=== PATIENT | male | born 1960 | race Caucasian/White ===

== ENCOUNTER 2024-02-03 03:09 | Inpatient (IN) | payer OTHER, SELFPAY ==
[2024-02-03] VITALS (78 sets, daily range): BP systolic 133–215; BP diastolic 63–116; BMI 31.6; BMI 31.2
[2024-02-03 00:44] LABS: Glucose - Point of Care 173 mg/dl (70-99)
--- NOTE | 2024-02-03 00:49 | ED.CVA ---
History of Present Illness
General
Chief Complaint: CVA/TIA Symptoms
Source: patient and spouse
Time Seen by Provider: 02/03/24 00:47
Onset of Stroke Symptoms
Onset of symptoms known: Yes
Date of onset of symptoms: 02/03/24
History of Present Illness
History of Present Illness:
This patient is a 63-year-old male with no prior medical history who does not see a doctor on a regular basis and has not seen a doctor in many years. He does elect to take a daily baby aspirin, otherwise he does not take any medications except for
vitamins. states that she last saw him completely asymptomatic at 9 PM on February 01, last night. Then, at approximately midnight, she went to go to bed, and the patient was in bed already and told her that he could not move his left side
well. She noticed his speech was slurred which concerned her and prompted their visit here. Here in the ER, patient states that he has weakness of his left side and that he is having trouble talking. He states this is happened approximately 2
hours ago. No history of anticoagulation use. Prior stroke or TIA, or similar symptoms. He denies any other symptoms such as chest pain, shortness of breath, etc.
Past History
Past History
ED Past Medical History: None
ED Past Surgical History: None
Social History
Tobacco: Non-smoker
Alcohol: None
Drug: None
Personal:
Living: with family
Scores
NIH Stroke Score
Level of Consciousness: 0 - Alert
LOC Questions: 0-Answers both correctly
LOC Commands: 0-Performs both correctly
Best Horizontal Gaze: 0-Normal
Visual [place]: 0=Normal, no visual loss
Facial Palsy: 2=Partial paralysis
Motor - Right Arm: 0=No drift 10 seconds
Motor - Left Arm: 1=Drift < 10 seconds
Motor - Right Le-No drift 5 seconds
Motor - Left Le-Drift < 5 seconds
Limb Ataxia: 0-Absent
Sensation: 0-Normal
Best Language: 0-No aphasia
Dysarthria: 1-Mild slurring
Extinction and Inattention: 0-No abnormality
Total Score:: 5
Course
Orders/Labs/Results
Orders:
Orders
02/03/24 00:47
Electrocardiogram (*1) Urgent
Reason for Study: Other
Other Reason for Exam: Possible Stroke
CT Head W/o Cont STROKE ALERT Urgent
Comment:
Reason For Exam: L facial droop, L extrem weakness
CT Head/Neck Ang STROKE ALERT Urgent
Comment:
Reason For Exam: L facial droop L extrem weakness
Bedside Glucose- Treatment ONCE
Cardiac Monitoring- Treatment ONCE
Cardiac Monitoring- Treatment ONCE
EKG- Treatment ONCE
IV Insert/Care/Rem.- Treatment PRN
Urinalysis Reflex To Culture Urgent
Date Specimen was Collected: 02/03/24
Time Specimen was Collected: 00:47
Vital Signs As Directed
Frequency: Other
Weight As Directed
Frequency: Once
Comment: ZERO STRETCHER SCALE FOR ACCURATE WEIGHT
O2 Therapy [RESP] Urgent
Titrate/Wean O2 to maintain O2 sat greater than (%): 93
Special Instructions: MAINTAIN CONTINUOUS O2 SATS > OR = 93%
02/03/24 00:48
Electrocardiogram (*1) Stat
Reason for Study: Other
Other Reason for Exam: neuro symptoms
EKG- Treatment ONCE
02/03/24 00:49
Complete Blood Count/With Diff Urgent
Comprehensive Metabolic Panel Urgent
PTT Urgent
Prothrombin Time Urgent
Troponin I Urgent
Comment: RUN ON SERUM
02/03/24 01:10
Labetalol HCl [Trandate] 10 mg IV NOW STA
Labetalol HCl [Trandate] 20 mg .ROUTE .STK-MED ONE
02/03/24 01:14
Tenecteplase [Tnkase] 25 mg Syringe [Syringe Non-Pump] 0 ml IV NOW
Provider explained risk/benefits to patient &/or caregiver?: Yes
Blood pressure: 133/63
Abnormal Lab Results
02/03/24 02/03/24
00:43 00:49
MCH 31.1 H pg
(27.0-31.0)
MPV 11.8 H fL
(7.4-10.4)
Absolute Monos (auto) 1.1 H 10^3/uL
(0.1-0.6)
Monocytes % 11.8 H %
(1.7-9.3)
POC Glucose 173 H mg/dl
(70-99)
02/03/24 00:49
Vital Signs
Initial and Last Documented VS:
Initial Vital Signs
Pulse Resp BP Pulse Ox
87 20 133/63 96
02/03/24 00:46 02/03/24 00:46 02/03/24 00:46 02/03/24 00:46
Last Documented Vital Signs
Pulse Resp BP Pulse Ox
97 20 196/96 98
02/03/24 01:13 02/03/24 01:13 02/03/24 01:13 02/03/24 01:13
Update Note
Update Note:
Patient presents to the Emergency Department with ___left facial droop, left-sided weakness
Number and Complexity of Problems Addressed at the Encounter
� Chronic conditions affecting care:
� Acute Exacerbation and/or Progression of Chronic Illness:
� Differential Diagnosis includes: But not limited to Earl's palsy, TIA, CVA, intracerebral hemorrhage, brain tumor, etc. etc.
Amount and/or Complexity of Data to be Reviewed and Analyzed
� I performed an independent evaluation of and my interpretation is:
EKG:
CT:
Xrays:
Laboratory Studies:
Other:
� Review of other/old records reveals: none available
� Clinical information was obtained by an independent historian: who is bedside
� Prescriptions/Medications Considered but not given: considered IAT but no LVO noted.
� Further testing considered but not performed:
Risk of Complications and/or Morbidity or Mortality of Patient Management
� Social determinants of health affecting care:
� Discussion with other providers (PCP, Hospitalists, Consultants, etc):
� Escalation of care including admission/observation vs risk of discharge considered: 116 AM....verbal ct report of noncon ct received. Case d/w dR Kenny, aware of exam, hx, phys, ct and NIH socre. Although not = or greater than
6, sxs considered disabling and therefore is a candidate for lytic. Lytic ordered, pharmacy called and expressed urgency. BP a contraindication at this time, labetalol ordered stat. R/b including approx 6% risk devastating bleed d/w pt and ,
they are agreeable to med if pt qualifies via bp reduction. LKW = 9pm under continued questions/clarification with both and pt.
Labetalol given X2 doses, 10 mg each, bp then less than 185/110..tnk given, exam again just prior confirming no change/improvemnet in score/sxs. 1:30AM CTA report, no LVO seen, limited by moderation motion, possible small aneurysm at L A1/2 jx[address]
TT sent to Dr Antonio re:admission 1:27 AM. Critical care alert also placed, 1:34 AM. ED charge account authorizer obviously also aware for some time. Labetalol gtt ordered in anticipation of post tnk bp control.
ED Attending Note
-
Portions of this chart may have been created with voice recognition software.� Occasional wrong word or��sound alike� substitutions may have occurred due to the inherent limitations of voice recognition software.
Discharge Plan
Departure
Patient Disposition: Admit
Date of Disposition: 02/03/24
Time of Disposition: 01:36
Admit to: ICU
Admit to doctor: jackson
Presentation/result/management discussed w/ accepting MD/DO: Hospitalist
Condition: Critical
Discharge Problem:
Acute CVA (cerebrovascular accident)
Prescriptions:
No Action
aspirin
81 mg PO DAILY
vitamin E
1 tab PO DAILY
Rx Instructions:
unsure of dose
Interventions
Interventions:
*General Assessment Last Done: 02/03/24 01:07
*Neglect/Abuse Screening Last Done: 02/03/24 01:07
*ED COVID-19 Vaccine History Last Done: 02/03/24 01:07
ED- Pulmonary Assessment Last Done: 02/03/24 01:07
ED- Neurological Assessment Last Done: 02/03/24 01:07
ED- Cardiac Assessment Last Done: 02/03/24 01:07
Discharge Date and Time
Print Language: TOGOLESE
[2024-02-03 00:56] LABS: % Basophils 0.3 % (0-2); % Eosinophils 1.8 % (0-6); % Immature Granulocytes 0.3 % (0-0.5); % Lymphocytes 28.3 % (20.5-51.1); % Monocytes 11.8 % (1.7-9.3); % Neutrophils 57.5 % (42.2-75.2); Absolute Eosinophils 0.2 10^3/uL (0-0.7); Absolute Lymphocytes 2.6 10^3/uL (1.2-3.4); Absolute Monocytes 1.1 10^3/uL (0.1-0.6); Absolute Neutrophils 5.2 10^3/uL (1.4-6.5); Hematocrit 42.5 % (39.0-52.0); Hemoglobin 15.3 g/dL (13.0-18.0); Mean Corpuscular Hgb 31.1 pg (27.0-31.0); Mean Corpuscular Volume 86.4 fL (80.0-94.0); Mean Platelet Volume 11.8 fL (7.4-10.4); Nucleated Red Blood Cells % 0 % (-); Platelet Count 167 10^3/uL (130-400); Red Blood Cell Count 4.92 10^6/uL (4.70-6.10); Red Cell Dist. Width 12.8 % (11.5-14.5)
[2024-02-03 01:07] LABS: INR 0.87; PT 11.7 Sec (11.4-14.6)
[2024-02-03 01:08] LABS: APTT 25.8 Sec (23.4-35.0)
[2024-02-03] MEDS: TRANDATE 10 MG IV ×3 (01:15→04:26)
[2024-02-03 01:19] LABS: ALT (SGPT) 68 U/L (0-50); AST (SGOT) 60 U/L (17-59); Albumin 4.5 g/dl (3.5-5.0); Alkaline Phosphatase 90 U/L (38-126); Blood Urea Nitrogen 19 mg/dl (9-20); Calcium 9.9 mg/dl (8.4-10.2); Carbon Dioxide 24 mmol/L (22-30); Chloride 106 mmol/L (98-107); Estimated Creatinine Clearance 90 ml/min; Glucose 200 mg/dl (70-99); Potassium 4.3 mmol/L (3.5-5.1); Sodium 144 mmol/L (135-145); Total Bilirubin 0.7 mg/dl (0.2-1.3); Total Protein 7.1 g/dl (6.3-8.2); eGFR > 60.00
[2024-02-03] MEDS: TNKASE 10 MG IV (01:26)
[2024-02-03 01:31] LABS: Troponin I < 0.012 ng/ml
--- NOTE | 2024-02-03 01:55 | HPS.HSE ---
Family Physician
-
Family Physician: * NONE
Chief Complaint
-
L Weakness
History of Present Illness
Patient is a 63y M with no known PMH who presents to ED complaining of left sided weakness and slurred speech. History obtained from patient and his at the bedside. Patient was feeling very well earlier today and went to bed around 9 PM.
He was last seen normal at that time. went into bed around 11:30 / 12 MN and patient complained that he could not move his L side very well. She noted that he was slurring his speech and they presented immediately to the ED for evaluation.
Patient states that he probably first noted the weakness on his L around 9:30 PM.
Patient denies any prior history of CVA, PR, etc.
He has no 'known' health problems, but has not seen a physician in many years.
Medical History
Past Medical History
Past Medical History: Reports None
Past Surgical History: Reports None
Social History
Tobacco: Non-smoker
Alcohol: Occasional
Drug: None
Personal:
Living: With Family
Family History
Family History: Other (Strong family history of DM.)
Allergies / Home Medications
Allergies reflects when Allergies were last updated in [facility].
Home Medications with original date entered in [facility]
Allergy/Medication List:
Allergies
Allergy/AdvReac Type Severity Reaction Status Date / Time
No Known Allergies Allergy Verified 02/03/24 00:52
Home Medications
aspirin 81 mg PO DAILY 02/03/24
vitamin E 1 tab PO DAILY 02/03/24
Review of Systems
-
History Source: Patient and Family
A 12 point ROS was completed and negative except as noted: Yes
Constitutional: Denies Fever or Chills
Respiratory: Denies Cough or Trouble Breathing
Cardiac: Denies Chest Pain or Palpitations
Abdomen/GI: Denies Abdominal Pain, Nausea, Vomiting or Diarrhea
: Denies Dysuria, Frequency or Flank Pain
Musculoskeletal: Denies Joint Pain or Edema
Neurological: Reports Weakness; Denies Dizzy or Headache
Psych: Denies Depression or Anxiety
Physical Exam
Vital Signs
Vital Signs
Pulse Resp BP Pulse Ox
70 20 185/90 98
02/03/24 01:22 02/03/24 01:13 02/03/24 01:22 02/03/24 01:13
Physical Exam
General: Other (63y M in no acute distress.)
HEENT: Moist mucous membranes and PERRLA
Respiratory: Clear; No Wheezes, Rales or Rhonchi
Cardiac: S1/S2 and Regular Rhythm; No Murmur
GI: Soft, Non Tender, Non Distended and Normal Bowel Sounds
Musculoskeletal: No Clubbing, No Cyanosis and No Edema
Neuro: AO x 3 and Other (L facial droop and dysarthria. LUE and LLE weakness (3/5). Sensation intact / symmetric.)
Laboratory Results
-
02/03/24 00:49
02/03/24 00:49
Laboratory Results
PT 11.7 Sec (11.4-14.6) 02/03/24 00:49
INR 0.87 02/03/24 00:49
APTT 25.8 Sec (23.4-35.0) 02/03/24 00:49
Total Bilirubin 0.7 mg/dl (0.2-1.3) 02/03/24 00:49
AST 60 U/L (17-59) H 02/03/24 00:49
ALT 68 U/L (0-50) H 02/03/24 00:49
Alkaline Phosphatase 90 U/L (38-126) 02/03/24 00:49
Troponin I < 0.012 ng/ml 02/03/24 00:49
Impression/Plan
-
A/P: Patient is a 63y M with no known medical history who presents to ED for evaluation of L sided weakness that started this evening.
Acute CVA
- Admit to ICU for further evaluation and treatment.
- Patient arrived within the window and with a significant neurologic deficit. TNK administered in the ED.
- Post-TNK care per protocol including BP management, neuro checks, etc.
- Neurology evaluation in the AM.
- CT in the ED shows R parietal lacune - possible acute. CTA without large vessel occlusion.
- MRI in the next 24 hours or so.
- Start ASA after 24 hours.
- PT / OT and PM&R evaluations.
- Follow for clinical improvement and / or new deficits.
- Check lipid panel, A1C, etc.
- Begin high intensity statin prior to discharge.
Hypertension
- BP significantly elevated in the ED.
- IV Labetalol administered.
- Follow for effect and continue PRN dosing as needed.
- Begin nicardipine infusion if BP remains elevated - goal < 180 / < 105.
- Patient will likely require PO medications to be started prior to discharge.
DM-II
- Random glucose 200 with strong family history and lack of routine health maintenance.
- Check A1C.
- Follow glucose and cover with SSI as needed.
- Would likely benefit from PO med regimen to start prior to discharge.
Obesity due to excess calories
- Affects all aspects of care.
- Encourage healthy diet and increased activity with goal of weight loss.
DVT Prophylaxis: SCDs
Code Status: Full
--- NOTE | 2024-02-03 04:13 | PTCARENOTE ---
Addendum entered by Claudia Parks RN 02/04/24 06:23:
Cannot verify vital signs captured prior to 329.
Original Note:
Received pt from ED to ICU 3362. Handoff NIH completed with ED RN Rhoda. NIH = 7. LUE and LLE weakness, L facial droop, dysarthria, LUE ataxia noted and unchanged per ED RN. AAOx3. SR on tele, HR 70s. BP 170s/90s. R upper arm with lines of petechiae
where BP cuff was in ED. Moved BP cuff to L upper arm. + pulses, no edema, afebrile. On RA. Lungs diminished. + bowel sounds. Urinal at bedside. Skin c/d/i. L hand and L AC #20 patent and capped. Call walker in reach. Neuro checks ongoing per orders
--- NOTE | 2024-02-03 04:32 | W.PN.UPDATE ---
Update Note
Progress Note Update
02/03/24
0340- Patient with increased left sided weakness, left arm and leg had improved to 3/5, now unable to move against gravity 1/5 left arm and leg, 2/5 left hip flexion. Left facial droop, current SBP >180. Patient denies any headache or
nausea/vomiting. Neurologist Dr. Efraín Bardales updated, recommendations received: labetalol 10mg IV push x1 now and initiation of nicardipine gtt with parameters SBP goal 160-170. Continue neurological check per protocol. RN at bedside updated on
plan of care and updated patient.
--- NOTE | 2024-02-03 04:37 | PTCARENOTE ---
LUE and LLE strength worsened, NIH = 10. ELADIO John to bedside immediately. Pt. without complaints otherwise. BP 180/90. 10mg IV labetalol and cardene gtt ordered to maintain SBP 160-170. Will continue to monitor closely
[2024-02-03] MEDS: CARDENE 200 IV (04:50)
[2024-02-03 05:04] LABS: Hematocrit 40.2 % (39.0-52.0); Hemoglobin 14.4 g/dL (13.0-18.0); Mean Corp Hgb Conc. 35.8 g/dL (33.0-37.0); Mean Corpuscular Hgb 31.2 pg (27.0-31.0); Mean Corpuscular Volume 87.2 fL (80.0-94.0); Mean Platelet Volume 12.1 fL (7.4-10.4); Platelet Count 157 10^3/uL (130-400); Red Blood Cell Count 4.61 10^6/uL (4.70-6.10); Red Cell Dist. Width 12.6 % (11.5-14.5); White Blood Cell Count 9.4 10^3/uL (4.8-10.8)
[2024-02-03 05:16] LABS: INR 0.93; PT 12.3 Sec (11.4-14.6)
[2024-02-03 05:17] LABS: APTT 29.2 Sec (23.4-35.0)
--- NOTE | 2024-02-03 05:23 | PTCARENOTE ---
No improvement in L sided weakness with BP control. RAYON TESTER aware-spoke with neurology. No repeat CT ordered at this time. Continue to monitor. BP 140s/70s on cardene- titrated to off at this time, will monitor and titrate PRN. Pt. without complaints.
[2024-02-03 05:27] LABS: Blood Urea Nitrogen 16 mg/dl (9-20); Calcium 9.4 mg/dl (8.4-10.2); Carbon Dioxide 23 mmol/L (22-30); Chloride 106 mmol/L (98-107); Estimated Creatinine Clearance 111 ml/min; Glucose 223 mg/dl (70-99); HDL Cholesterol 46 mg/dl; LDL Cholesterol, Calculated 161 mg/dl; Magnesium 1.9 mg/dl (1.6-2.3); Phosphorus 2.5 mg/dl (2.5-4.5); Potassium 4.3 mmol/L (3.5-5.1); Sodium 141 mmol/L (135-145); Total Cholesterol 228 mg/dl (50-199); Triglyceride 109 mg/dl (10-149); Very Low Density Lipoprotein 21 mg/dl (0-30); eGFR > 60.00
--- NOTE | 2024-02-03 07:42 | W.PN.HOSP.TC ---
Today's Communication/Plan
-
see A/P
Assessment / Plan
Assessment / Plan
HPI: 63y M with no known PMH (has not seen a doctor for years); p/w Left sided weakness and slurred speech. History obtained from patient and his at the bedside. Patient was feeling well earlier on DOA and went to bed around 9 PM. He was last
seen normal at that time. went into bed around 11:30 / 12 MN and patient complained that he could not move his L side very well. She noted that he was slurring his speech and they presented immediately to the ED for evaluation.
Patient states that he probably first noted the weakness on his L around 9:30 PM.
Patient denies any prior history of CVA, AR, etc.
A/P:
# Acute CVA
Patient arrived within the window and with a significant neurologic deficit. TNK administered in the ED.
Post-TNK care per protocol including BP management, neuro checks, etc.
Neurology evaluation.
CT in the ED shows R parietal lacune - possible acute. CTA without large vessel occlusion.
Follow MRI in the next 24 hours or so.
Start ASA after 24 hours.
PT / OT and PM&R evaluations.
Follow for clinical improvement and / or new deficits.
LDL 161, would start high intensity statin when LFT normalizes
Follow A1C
# Hypertension
BP significantly elevated in the ED. IV Labetalol administered. Follow for effect and continue PRN dosing as needed.
Nicardipine infusion initiated - goal < 180 / < 105.
Patient will likely require PO medications to be started prior to discharge.
# DM-II
Random glucose 200 with strong family history and lack of routine health maintenance.
Check A1C.
Follow glucose and cover with SSI as needed.
Would likely benefit from PO med regimen to start prior to discharge.
# Obesity due to excess calories
Affects all aspects of care.
Encourage healthy diet and increased activity with goal of weight loss.
DVT Prophylaxis: SCDs
Code Status: Full
DW RN
DW SO on the phone
Anticipated Discharge: 24 - 48 hours
Subjective/Interval History
-
Date of Service: February 03, 2024
Objective Data
-
Labs:
Laboratory Results
02/03/24 02/03/24
00:49 04:33
WBC 9.0 9.4
Hgb 15.3 14.4
Hct 42.5 40.2
Plt Count 167 157
PT 11.7 12.3
INR 0.87 0.93
APTT 25.8 29.2
Sodium 144 141
Potassium 4.3 4.3
Chloride 106 106
Carbon Dioxide 24 23
BUN 19 16
Creatinine 1.0 0.8
Glucose 200 H 223 H
Calcium 9.9 9.4
Total Bilirubin 0.7
AST 60 H
ALT 68 H
Alkaline Phosphatase 90
Vital Signs:
Vital Signs
Temp Pulse Resp BP Pulse Ox
36.3 C 77 18 166/88 95
02/03/24 04:04 02/03/24 07:16 02/03/24 07:16 02/03/24 07:16 02/03/24 07:16
I&O
02/02/24 02/03/24 02/04/24
06:59 06:59 06:59
Intake Total 37.5 / 37.5
Balance 37.5 / 37.5
[2024-02-03 08:03] LABS: Glucose - Point of Care 224 mg/dl (70-99)
[2024-02-03] MEDS: NOVOLOG FLEXPEN-LOW RESISTANCE 2 UNITS SC (08:10)
--- NOTE | 2024-02-03 08:50 | CON.INTV ---
Consultation
Consultation Request
Date/Time Consultation Requested: 02/03/2024351
Date/Time Consultation Performed: 02/03/2024823
Requesting Provider: Dr. Antonio
Performing Provider: Dr. Becerra
Reason for Consultation: Stroke
Medical History
-
Chief Complaint: Left-sided weakness/slurred speech
History of Present Illness:
63-year-old male with no known past medical history presented with left-sided weakness and slurred speech. Patient felt well earlier prior to arrival and went to bed at around 9 PM which was his LKN. noticed that he could not move his left
side well at around 11:30 PM/midnight. Also noted slurred speech, and patient brought to the ER for further evaluation. Upon further questioning, patient noted left-sided weakness around 9:30 PM. Initial vitals showed pulse rate 87, respiratory
rate 20, BP 187/116, and SpO2 96% on room air. Initial NIHSS: 5. Initial labs showed Hb 15.3, INR 0.87, glucose 200, and troponin negative at <0.012. Stroke alert called and initial CT head showed suspected small lacunar infarct in the right
parietal white matter, which could be acute or chronic. CTA head/neck showed no acute pathology, with >70% stenosis of the proximal left ICA with a suspected a 1 to 2 mm aneurysm. Patient considered a tPA candidate � TNK was administered at
02/03/2024 at 0126. He was admitted to the ICU for further care, and critical care services consulted for additional management/recommendations.
When I saw the patient today, he was in bed in no acute distress, , Vita Bernabe, at bedside. All questions were answered. His speech has improved and he is no longer weak on his left side of his body. Per the , he is still having speech
difficulty although his words are much more clear. He currently has no complaints. Heart rate 89, BP 167/100 and saturating 97% on room air. He denies DANIELLE, CP, SOB, abdominal pain, fevers or chills.
PMHx: No known past medical history
PSHx: Noncontributory
Past Medical History
Past Medical History: Other (Above as per HPI)
Past Surgical History: Other (Above as per HPI)
Social History
Tobacco: Non-smoker
Alcohol: Occasional
Drug: None
Personal:
Living: With Family
Family History
Family History: Diabetes
Allergies / Home Medications
Allergies
Allergy/AdvReac Type Severity Reaction Status Date / Time
No Known Allergies Allergy Verified 02/03/24 00:52
Home Medications
�Medication �Instructions �Recorded �Confirmed �Last Taken �Type
aspirin 81 mg tablet,delayed 81 mg PO DAILY Blood Clot 02/03/24 02/03/24 Unknown History
release Prevention/Tx
vitamin E 1 tab PO DAILY Supplement 02/03/24 02/03/24 Unknown History
Review of Systems
-
History Source: Patient
All other systems: Negative unless noted
Vitals / Labs / Diagnostic Testing
Vital Signs
Temp Pulse Resp BP Pulse Ox
97.3 F 78 15 176/84 96
02/03/24 08:00 02/03/24 10:17 02/03/24 10:17 02/03/24 10:17 02/03/24 10:17
Lab Data
02/03/24 04:33
02/03/24 04:33
Laboratory Results
02/03/24 02/03/24
00:49 04:33
PT 11.7 12.3
INR 0.87 0.93
APTT 25.8 29.2
Diagnostic Testing:
Physical Exam
-
HEENT: Normocephalic and Anicteric
Cardiovascular: S1/S2 and Peripheral Edema (negative)
Respiratory: Wheeze (negative), Rales (negative), Rhonchi (negative) and Non-Labored Respirations
GI: Soft, Non Distended, Non Tender and Normal Bowel Sounds
Neurology: Awake, Alert, No Motor Deficits (Phys Ther strength is 4/5 on left hand, 5/5 right hand. 5/5 dorsi-/plantar-flexion bilaterally), Tremors (negative) and Other (Normal sensation to light touch in arms and legs; able to shrug shoulders normally
against resistance, normal EOMI, normal H test, able to protrude out tongue and move left and right, normal facial sensation to light touch; able to keep eyes closed against resistance)
Skin: Warm and Dry
General: Respiratory Distress (negative), Comfortable, Chills (negative) and Sweats (negative)
Assessment
-
Assessment: 63-year-old male with no known past medical history presented with left-sided weakness and slurred speech. Patient felt well earlier prior to arrival and went to bed at around 9 PM which was his LKN. noticed that he could not
move his left side well at around 11:30 PM/midnight. Also noted slurred speech, and patient brought to the ER for further evaluation. Upon further questioning, patient noted left-sided weakness around 9:30 PM. Initial vitals showed pulse rate 87,
respiratory rate 20, BP 187/116, and SpO2 96% on room air. Initial NIHSS: 5. Initial labs showed Hb 15.3, INR 0.87, glucose 200, and troponin negative at <0.012. Stroke alert called and initial CT head showed suspected small lacunar infarct in
the right parietal white matter, which could be acute or chronic. CTA head/neck showed no acute pathology, with >70% stenosis of the proximal left ICA with a suspected a 1 to 2 mm aneurysm. Patient considered a tPA candidate � TNK was administered
at 02/03/2024 at 0126. He was admitted to the ICU for further care, and critical care services consulted for additional management/recommendations.
Chronic conditions [facility]: No known past medical history
Impression:
#Left-sided hemiparesis + slurred speech suspicious for CVA
#Suspected small lacunar infarct in the right parietal white matter seen on CT head from 02/03/2024
#Hyperglycemia
#Transaminitis with slightly elevated AST + ALT
#Obesity (BMI: 31.2)
#Family history of DM
Plan:
- q1hr neurochecks with NIHSS q shift; perform NIHSS with any change in neurochecks or clinical status in addition to stat CT head with notification to neurology and concrete buster operator
- Permissive hypertension with strict BP <180/105mmHg
- Neurology consult
- Hold antiplatelets/anticoagulants until at least 24 hours s/p TNK
- Check check CT head 24 hours s/p TNK
- Check MRI brain
- PT/OT/[facility] [employer]
- Bedside nursing swallowing evaluation prior to giving any PO meds
- HOB flat to help perfuse brain parenchyma
- Maintain euglycemia with goal BG 140-180
- Maintain SpO2 >94%
- Maintain MAP>65
- Replete electrolytes with K>4, Mg>2
- prn nebulized bronchodilators diet � patient not currently
- Incentive spirometer encouraged
- DVT ppx: SCDs for now
Critical care statement: A total of 40 minutes of critical care time was provided for this patient today. This includes management of unstable vital signs, evaluation of the patient at bedside, reviewing the patient's pertinent medical records
including radiographs, microbiology, laboratory evaluations, and discussion with primary team, consultants, pharmacy, nutrition, physical therapy, case management, charge nurse, critical care nursing, and respiratory therapy.
Data:
CT head 02/03/2024: Probable small lacunar infarct in the right parietal white matter as described above. This may be acute or chronic. This could further be evaluated by MR examination if indicated clinically
CTA head/neck 02/03/2024:
No acute pathology identified. No evidence of M1 or M2 occlusion.
Greater than 70% focal stenosis of the proximal left internal carotid artery as described above.
Possible A1 2 mm aneurysm. This would better be evaluated by a nonurgent MRA examination
Multilevel cervical spine degenerative disc disease.
Mild reversal of normal cervical spinal lordosis. This can be seen with muscular spasm
Less than grade 1 anterolisthesis of C4 on C5
--- NOTE | 2024-02-03 09:56 | PTCARENOTE ---
Rec'd pt at 0615. Bedside NIHSS completed with previous shift, NIHSS-8. +facial droop, left sided weakness and slurred speech. Pt stumbles over words or says incorrect words at times, but able to make needs known. Orientedx3, follows commands.
Monitor SR. Lungs CTA. +BS, abd soft/nt. S.O. at bedside, updated on plan of care.
[2024-02-03] MEDS: NOVOLOG FLEXPEN-LOW RESISTANCE 1 UNITS SC (10:59)
[2024-02-03 11:10] LABS: Glucose - Point of Care 169 mg/dl (70-99)
[2024-02-03 11:12] LABS: Glycohemoglobin (HgbA1c) 7.1 % (4.0-5.6)
--- NOTE | 2024-02-03 11:39 | CON.NEURO4 ---
Consultation - Neurology 4
-
CONSULTING PHYSICIAN: Efraín Bardales MD(Neurology)
REFERRING PHYSICIAN: Hospitalist
DICTATED BY: Efraín Bardales MD
DATE/TIME OF REQUEST: February 03, 2024
DATE/TIME OF CONSULTATION: February 03 2024
Reason for Consultation: Left-sided weakness
History of Present Illness:
This is a 63year old right handed male who has presented to the hospital with (chief complaint) of left-sided weakness. He gives a history of hypertension who had been in his usual state of health until last night. He went to bed at around 9P.
His retired later at around 1130P at that time he reported that he had trouble moving his left arm. She noted slurred speech.
He was brought to the emergency room. At the time of presentation he had slurred speech, left facial weakness and weakness of the left arm and left leg. His blood pressure was elevated
He was given IV labetalol. He was given IV TNK at 0114A. His symptoms resolved. In the ICU his blood pressure continued to rise with recurrence of left-sided weakness.
He was placed on IV nicardipine. Blood pressure is controlled on his weakness resolved
This morning he is awake with minimal expressive aphasia, slurred speech and minimal left-sided weakness with dysmetria. He is off the nicardipine drip
Past Medical History: Hypertension
Surgical History: None
Family History: None
Social History: lives at home with his
Allergies: None
Home Medications: Aspirin
Review of Symptoms:
Patient denies any fever, headache, chest pain, shortness of breath, GI or symptoms.
�Per the HPI.�All systems are reviewed negative except above.
'
Vital Signs:
The patient has a Temp 36.3 C Pulse 65 [id number] 150/78 Pulse Ox96 02/03/24 08:00 02/03/24 11:15 02/03/24 11:15 02/03/24 11:15 02/03/24 11:15
Physical Exam:
The patient is afebrile, heart sounds S1 and S2 are (regular / irregular), and chest is clear to auscultation bilaterally.
- If not clear, describe.
NIH Stroke Scale (if applicable):
I performed the NIH stroke scale. The patient scored ( 5 ) points on the NIH stroke scale assessment:
Neurologic Examination:
The patient is awake, alert and oriented x 3. (He is able to follow commands and answer questions appropriately. There is aphasia and dysarthria. On cranial nerve assessment, pupils are 3 mm bilateral, round and reactive to light and
accommodation. Visual davis are full. Extraocular movements are intact. Facial sensations are intact and bilaterally symmetrical, There is no facial asymmetry. Hearing is intact bilaterally to normal conversation volume. Tongue palate and uvula
are midline. Sternocleidomastoid strengths are full bilaterally.
Motor strengths are 5/5 bilateral upper and lower extremities on on the right side. On the left side strength is 4 out of 5. There is left pronator drift. No involuntary movement noted.
Deep tendon reflexes are 2+ bilateral upper and lower extremities and LEFT Babinski . Sensations of pain, touch, temperature and vibration are intact and bilaterally symmetrical.
There was no extinction noted on double simultaneous stimulation. Coordination is dysmetric by finger to nose LEFT. Romberg positive. Gait unsteady
Lab Results: Addendum
Neuro Imaging: CT head reveals normal cortical architecture normal ventricles minimal white matter changes
Impression:
(Mr. / Ms.) KENDRICK NOBLES is a 63 year old M who has presented to the hospital with (symptoms/chief complaint) of left-sided weakness.
Differentials for the patient's presentation include:
1. Right MCA subcortical infarct
2. Hypertensive crisis
Patient has the following risk factors for their symptoms: Hypertension
IV Tenecteplase/IAT candidacy: Patient received TNK at 0114A.
Recommendations:
1. MRI of the head
2. Permissive hypertension
3. Aspirin 81
4. Plavix 75
5. PT OT
6. Speech therapy
7. Lipid profile
8. Lipitor 80 mg
Discussed patient care with: Hospitalist
Allergies
-
Allergies
Allergy/AdvReac Type Severity Reaction Status Date / Time
No Known Allergies Allergy Verified 02/03/24 00:52
Vital Signs and Labs
-
Vital Signs and Labs:
Vital Signs
Temp Pulse Resp BP Pulse Ox
36.3 C 65 14 150/78 96
02/03/24 08:00 02/03/24 11:15 02/03/24 11:15 02/03/24 11:15 02/03/24 11:15
Lab Results
02/03/24 04:33
02/03/24 04:33
PT 12.3 Sec (11.4-14.6) 02/03/24 04:33
INR 0.93 02/03/24 04:33
APTT 29.2 Sec (23.4-35.0) 02/03/24 04:33
Sodium 141 mmol/L (135-145) 02/03/24 04:33
Potassium 4.3 mmol/L (3.5-5.1) 02/03/24 04:33
BUN 16 mg/dl (9-20) 02/03/24 04:33
Glucose 223 mg/dl (70-99) H 02/03/24 04:33
Calcium 9.4 mg/dl (8.4-10.2) 02/03/24 04:33
Phosphorus 2.5 mg/dl (2.5-4.5) 02/03/24 04:33
LDL Cholesterol, Calc 161 mg/dl 02/03/24 04:33
Medications
-
Active Medications
Generic Name Dose Route Start Last Admin
Trade Name Freq PRN Reason Stop Dose Admin
Acetaminophen 650 mg 02/03/24 03:52
Acetaminophen 325 Mg Tablet PO 03/02/24 03:51
Q4HPRN PRN
DANIELLE, mild pain, or temp >100.4F
Dextrose 12.5 grams 02/03/24 03:52
Dextrose 50% (0.5 Grams/Ml) 50 Ml Syringe IV 03/02/24 03:51
[id number] PRN
hypoglycemia
Protocol
Glucagon 1 mg 02/03/24 03:52
Glucagon 1 Mg Vial IM 03/02/24 03:51
PRN PRN
hypoglycemia
Protocol
Nicardipine/Sodium Chloride 40 mg in 200 mls @ 0 mls/hr 02/03/24 04:30 02/03/24 04:50
Cardene IV 200 mls
PER PROTOCOL KELLEY Administration
Protocol
Per Protocol
Insulin Aspart 0 units 02/03/24 07:30 02/03/24 10:59
Insulin Aspart Low Resistance 300 Units/3 Ml Pen.Injctr SC 03/02/24 07:29 1 units
AC KELLEY Administration
Protocol
Labetalol HCl 10 mg 02/03/24 03:52 02/03/24 04:26
Labetalol Hcl 5 Mg/1 Ml (20 Mg/4 Ml) Injection IV 03/02/24 03:51 10 mg
Q6HPRN PRN Administration
BP > 180/105 mmHg
Sodium Chloride 0 flush 02/03/24 04:00
Sodium Chloride 0.9% (Flush) Syringe IV 03/02/24 03:59
PER PROTOCOL KELLEY
Home Medications
�Medication �Instructions �Recorded
aspirin 81 mg tablet,delayed 81 mg PO DAILY Blood Clot 02/03/24
release Prevention/Tx
vitamin E 1 tab PO DAILY Supplement 02/03/24
--- NOTE | 2024-02-03 12:31 | PTOTSP ---
Acute Care Evaluation
Pt currently presents with clinical signs of mild oropharyngeal dysphagia characterized by prolonged mastication and bolus formation, reduced bolus formation, diffuse oral residue with solids post-swallow requiring compensatory strategies for
clearance, and occasional inadequate airway protection as evidenced by coughing 1x with liquid ingestion.
Pt also presents with clinical symptoms of mild to moderate dysarthria characterized by reduced speech precision, low vocal volume, and slow speech; mild to moderate expressive aphasia characterized by reduced automatic speech productions, anomia,
reduced phrase length and complexity, increased time taken to formulate/produce/express thoughts, and reduced reading accuracy; mild receptive aphasia characterized by increased time taken to process information and need for information to be
repeated; as well as a mild cognitive linguistic impairment characterized by deficits in reduced working memory, thought organization, and short term recall. Pt would benefit from more comprehensive speech, language, and cognitive-linguistic
assessments and tx at the acute rehab level of care upon d/c.
Recommendations:
- DOWNGRADE PO diet to SOFT BITE SIZED SOLIDS (pt preference) with THIN LIQUIDS; meds as tolerated.
- Aspiration precautions: Fully awake, alert, and upright for all PO intake; small bites/sips; slow intake; alternate liquids/solids; utilize tongue sweep or liquid wash for residue clearance.
- WINE CELLAR STOCK CLERK to f/u while pt is admitted to ensure pt is safely consuming PO diet consistencies, re-assess candidacy for further diet upgrades, and to determine whether or not pt would benefit from an instrumental swallow study.
- WINE CELLAR STOCK CLERK to f/u while pt is admitted to provide speech, language, and cognitive linguistic tx.
- Pt would benefit from continued intensive WINE CELLAR STOCK CLERK services upon d/c at the ACUTE REHAB level of care.
[2024-02-03] MEDS: LIPITOR 80 MG PO (12:46)
--- NOTE | 2024-02-03 12:53 | PTCARENOTE ---
Pt helped to sit on side of bed in attempt to void. Pt unable to void, bladder scanned for >660ml. Straight cath performed without difficulty for ~1100mls of pawan urine. Specimen sent as per orders.
[2024-02-03 12:55] LABS: Urine Albumin Negative (Neg - Trace); Urine Bilirubin Negative (Negative); Urine Character Clear (Clear); Urine Color Yellow; Urine Glucose 2+ (Negative); Urine Ketone Negative (Negative); Urine Leukocyte Negative (Negative); Urine Nitrite Negative (Negative); Urine Occult Blood Negative (Negative); Urine Urobilinogen Negative (Neg - 1+)
[2024-02-03] MEDS: NOVOLOG FLEXPEN-LOW RESISTANCE SC (16:11)
[2024-02-03 16:22] LABS: Glucose - Point of Care 135 mg/dl (70-99)
--- NOTE | 2024-02-03 20:00 | PTCARENOTE ---
Received pt resting in bed, AAOx3. Pt. without complaints. NIH = 6 for facial droop, L sided weakness and dysarthria. Q1hr neuro checks ongoing. SR on tele. HR 60s-70s. BP 160s/80s. No edema, + pulses. On RA. Lungs diminished. Spo2 97%. + bowel
sounds. Poor appetite. Has not voided since straight cath on dayshift. Pt. reports no urge to void. Bladder scan = 242ml. PO intake encouraged. Will monitor.
[2024-02-03 23:02] LABS: Glucose - Point of Care 138 mg/dl (70-99)
[2024-02-04] VITALS (18 sets, daily range): BP systolic 122–193; BP diastolic 66–110; PULSE 68; O2SAT 97; BMI 30.8
--- NOTE | 2024-02-04 01:23 | PTCARENOTE ---
Pt. transported to CT scan for head CT. Pt. strength improving in LUE (5/5) and LLE (4/5). No other changes. Pt resting
[2024-02-04 04:28] LABS: Hematocrit 40.6 % (39.0-52.0); Hemoglobin 14.4 g/dL (13.0-18.0); Mean Corp Hgb Conc. 35.5 g/dL (33.0-37.0); Mean Corpuscular Hgb 30.8 pg (27.0-31.0); Mean Corpuscular Volume 86.9 fL (80.0-94.0); Mean Platelet Volume 11.9 fL (7.4-10.4); Platelet Count 143 10^3/uL (130-400); Red Blood Cell Count 4.67 10^6/uL (4.70-6.10); Red Cell Dist. Width 12.7 % (11.5-14.5); White Blood Cell Count 6.5 10^3/uL (4.8-10.8)
[2024-02-04 04:52] LABS: ALT (SGPT) 50 U/L (0-50); AST (SGOT) 34 U/L (17-59); Albumin 3.8 g/dl (3.5-5.0); Alkaline Phosphatase 78 U/L (38-126); Blood Urea Nitrogen 12 mg/dl (9-20); Calcium 9.3 mg/dl (8.4-10.2); Carbon Dioxide 26 mmol/L (22-30); Chloride 106 mmol/L (98-107); Direct Bilirubin 0.2 mg/dl (0.0-0.4); Estimated Creatinine Clearance 111 ml/min; Glucose 158 mg/dl (70-99); Potassium 4.3 mmol/L (3.5-5.1); Sodium 142 mmol/L (135-145); Total Bilirubin 0.7 mg/dl (0.2-1.3); Total Protein 6.4 g/dl (6.3-8.2); eGFR > 60.00
--- NOTE | 2024-02-04 06:06 | PTCARENOTE ---
Pt had no urge to void overnight. Frequent bladder scans checked- less than 400ml until about 0600- then 485ml scanned. Straight cath'd for 500ml pawan urine. PO intake encouraged. Neuro checks unchanged. Pt without complaints
[2024-02-04] MEDS: ASPIR LOW (ENTERIC COATED) 81 MG PO (06:10)
[2024-02-04] MEDS: PLAVIX 75 MG PO (06:10)
[2024-02-04] MEDS: ASPIR LOW (ENTERIC COATED) PO (06:56)
[2024-02-04] MEDS: PLAVIX PO (06:56)
--- NOTE | 2024-02-04 07:49 | W.PN.HOSP.TC ---
Today's Communication/Plan
-
MRI
PT/OT
monitor BP and likely start new med pre-discharge
start metformin tomorrow
Assessment / Plan
Assessment / Plan
HPI: 63y M with no known PMH (has not seen a doctor for years); p/w Left sided weakness and slurred speech. History obtained from patient and his at the bedside. Patient was feeling well earlier on DOA and went to bed around 9 PM. went
into bed around 11:30 / 12 MN and patient complained that he could not move his L side very well. She noted that he was slurring his speech and they presented immediately to the ED for evaluation.
Patient states that he probably first noted the weakness on his L around 9:30 PM.
Patient denies any prior history of CVA, NM, etc.
HEAD CT 02/03/24
IMPRESSION:
Probable small lacunar infarct in the right parietal white matter as described above. This may be acute or chronic. This could further be evaluated by MR examination if indicated clinically
HEAD/NECK CTA
IMPRESSION: No acute pathology identified. No evidence of M1 or M2 occlusion.
Greater than 70% focal stenosis of the proximal left internal carotid artery as described above.
Possible A1 2 mm aneurysm. This would better be evaluated by a nonurgent MRA examination
Multilevel cervical spine degenerative disc disease.
Mild reversal of normal cervical spinal lordosis. This can be seen with muscular spasm
Less than grade 1 anterolisthesis of C4 on C5
A/P:
# Acute CVA
-CT in the ED shows R parietal lacune - possible acute. CTA > 70% focal stenosisi proximal left ICA (opp side injury)
-s/p tPA 02/02 @ 1:26 AM
-MRI this AM
-asa/plavix initiated by neurology
-new start statin
-PT / OT and PM&R evaluations.
# Hypertension
BP significantly elevated in the ED. IV Labetalol administered. Follow for effect and continue PRN dosing as needed.
-s/p nicardipine
-monitor BP and need to start new medications
# DM-II
Random glucose 200 with strong family history and lack of routine health maintenance.
-A1c 7.1%
-start metformin 48 hours post contrast
-ISS
-diabetic diet
# Obesity due to excess calories
Affects all aspects of care.
Encourage healthy diet and increased activity with goal of weight loss.
DVT Prophylaxis: SCDs
Code Status: Full
DW RN
DW SO on the phone
Anticipated Discharge: Within 24 hours
Subjective/Interval History
-
Date of Service: February 04, 2024
feeling well
left arm strength improving
no new complaints
Objective Data
-
Labs:
Laboratory Results
02/04/24
03:47
WBC 6.5
Hgb 14.4
Hct 40.6
Plt Count 143
Sodium 142
Potassium 4.3
Chloride 106
Carbon Dioxide 26
BUN 12
Creatinine 0.8
Glucose 158 H
Calcium 9.3
Total Bilirubin 0.7
AST 34
ALT 50
Alkaline Phosphatase 78
Vital Signs:
Vital Signs
Temp Pulse Resp BP Pulse Ox
98.6 F 62 18 148/85 96
02/04/24 03:50 02/04/24 06:30 02/04/24 06:30 02/04/24 06:18 02/04/24 06:30
I&O
02/03/24 02/04/24 02/05/24
06:59 06:59 06:59
Intake Total 37.5 / 37.5 240 / 240
Output Total 1600 / 1600
Balance 37.5 / 37.5 -1360 / -1360
Review of Systems
-
History Source: Patient
All other systems: Reviewed and negative
Physical Exam
-
General: No Apparent Distress
HEENT: PERRLA
Respiratory: Clear to Auscultation; Negative Wheezes
Cardiac: Regular Rhythm and S1/S2
GI: Soft and Nontender
Musculoskeletal: No Edema
Skin: Warm and Dry; Negative Rash
Neuro: AO x 3 and Other (slight LUE pronator drift, 5/5 strength elbow flexion and extension; 4+/5 strength LLE strength)
Psych: Calm
Data Reviewed
-
Diagnostic Radiology: Report Reviewed by me
Labs: Labs Reviewed by me
[2024-02-04] MEDS: NOVOLOG FLEXPEN-LOW RESISTANCE SC ×2 (07:53→16:24)
[2024-02-04 08:04] LABS: Glucose - Point of Care 142 mg/dl (70-99)
--- NOTE | 2024-02-04 08:57 | PTCARENOTE ---
Updated assessment, vital signs ongoing and as documented. Follow up speech recommendation reevaluation. Update bedside with hospitalist in with patient. Update with Instrument And Controls Technician team. Plan for telemetry post will follow up with neurology. Presently
at bedside with patient. Will continue to follow plan of cares. Plan for MRI this am.
--- NOTE | 2024-02-04 08:59 | W.PN.NEURO.1 ---
Today's Communication / Plan
-
Outpatient vascular surgery evaluation for left internal carotid artery stenosis as this issue is likely unrelated to the patient's posterior circulation stroke
Patient should undergo transesophageal echocardiogram despite unremarkable echocardiogram due to the patient's relatively young age and lack of numerous etiologies for acute stroke
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
Continue new dual platelet therapy with aspirin and clopidogrel, then clopidogrel alone as the patient presented with aspirin as a routine therapy
Agree with initiation of atorvastatin 80 mg daily due to LDL 161
Patient may require in the next year repeated MRA of head to assess if growth of small sized right anterior cerebral artery aneurysm
Hypercoagulable evaluation will be needed as outpatient, 6 weeks after stroke onset
Goal of hypertension due to left carotid artery stenosis, systolic blood pressure should be maintained less than 160 and diastolic blood pressure less than 90
Neuro Assessment/Plan
Assessment
Patient presented with acute onset left upper extremity weakness and dysarthria, found in the emergency department to have arm and leg weakness on that side. Patient received tenecteplase and was started on IV nicardipine.
Etiology is right pontine acute ischemic stroke. The etiology for this is less clear. Patient received tenecteplase, was not a candidate for intra-arterial thrombectomy due to absence of clot for retrieval.
MRI of brain: In the right central rangel, acute to subacute infarction, and measures 1.3 cm AP by 1.2 cm transverse and approximately 0.8 cm craniocaudal
Carotid ultrasound: Greater than 70% focal stenosis of the proximal left internal carotid artery
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
Plan
Outpatient vascular surgery evaluation for left internal carotid artery stenosis as this issue is likely unrelated to the patient's posterior circulation stroke
Patient should undergo transesophageal echocardiogram despite unremarkable echocardiogram due to the patient's relatively young age and lack of numerous etiologies for acute stroke
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
Continue new dual platelet therapy with aspirin and clopidogrel, then clopidogrel alone as the patient presented with aspirin as a routine therapy
Agree with initiation of atorvastatin 80 mg daily due to LDL 161
Patient may require in the next year repeated MRA of head to assess if growth of small sized right anterior cerebral artery aneurysm
Rehabilitation evaluations
Hypercoagulable evaluation will be needed as outpatient, 6 weeks after stroke onset
Goal of hypertension due to left carotid artery stenosis, systolic blood pressure should be maintained less than 160 and diastolic blood pressure less than 90
Goal of normoglycemia
Will follow as outpatient.
Subjective/Objective
Subjective Data
Date of Service: February 04, 2024
Objective Data
Vital Signs
Temp Pulse Resp BP Pulse Ox
36.9 C 75 29 179/82 96
02/04/24 07:51 02/04/24 08:00 02/04/24 08:00 02/04/24 08:00 02/04/24 08:20
Lab Results
02/04/24 03:47
02/04/24 03:47
PT 12.3 Sec (11.4-14.6) 02/03/24 04:33
INR 0.93 02/03/24 04:33
APTT 29.2 Sec (23.4-35.0) 02/03/24 04:33
Sodium 142 mmol/L (135-145) 02/04/24 03:47
Potassium 4.3 mmol/L (3.5-5.1) 02/04/24 03:47
BUN 12 mg/dl (9-20) 02/04/24 03:47
Glucose 158 mg/dl (70-99) H 02/04/24 03:47
Calcium 9.3 mg/dl (8.4-10.2) 02/04/24 03:47
Phosphorus 2.5 mg/dl (2.5-4.5) 02/03/24 04:33
LDL Cholesterol, Calc 161 mg/dl 02/03/24 04:33
Patient Allergies
No Known Allergies Allergy (Verified 02/03/24 00:52)
Data Reviewed
-
Labs: Report Reviewed
Reviewed with: Physician
Old Records: Summarized
Past History
Past History
ED Past Medical History: CVA (Right pontine), HTN and NIDDM
ED Past Surgical History: None
Social History
Tobacco: Non-smoker
Alcohol: None
Drug: None
Personal:
Living: with family
Family History
Family History: Other (Father with PD)
[2024-02-04] MEDS: TRANDATE 10 MG IV (09:04)
--- NOTE | 2024-02-04 09:38 | PTCARENOTE ---
Continued follow up Vital sign trends reviewed with neurology and Hospitalist team. Presently at MRI. Follow up plan of cares as ordered. Call to update [facility] team transfer plan of cares will follow.
--- NOTE | 2024-02-04 09:44 | PTCARENOTE ---
Late entry update. Patient ambulated with one person supervision 20'feet to stretcher without any difficulties. Continue follow up pt/ot and speech.
--- NOTE | 2024-02-04 10:23 | W.PN.INTV ---
Documented by User: Erick Beverly MD, Resident 02/04/24 11:51
Today's Communication / Plan
Recommendations
- Transferred to Telemetry
- Continue with frequent neurological checks
- Pending MRI
Assessment
-
Assessment: 63-year-old male with no known past medical history presented with left-sided weakness and slurred speech. Patient felt well earlier prior to arrival and went to bed at around 9 PM which was his LKN. noticed that he could not
move his left side well at around 11:30 PM/midnight. Also noted slurred speech, and patient brought to the ER for further evaluation. Upon further questioning, patient noted left-sided weakness around 9:30 PM. Initial vitals showed pulse rate 87,
respiratory rate 20, BP 187/116, and SpO2 96% on room air. Initial NIHSS: 5. Initial labs showed Hb 15.3, INR 0.87, glucose 200, and troponin negative at <0.012. Stroke alert called and initial CT head showed suspected small lacunar infarct in
the right parietal white matter, which could be acute or chronic. CTA head/neck showed no acute pathology, with >70% stenosis of the proximal left ICA with a suspected a 1 to 2 mm aneurysm. Patient considered a tPA candidate � TNK was administered
at 02/03/2024 at 0126. He was admitted to the ICU for further care, and critical care services consulted for additional management/recommendations.
Chronic conditions [facility] SPECIAL[facility]: No known past medical history
Impression:
#Left-sided hemiparesis + slurred speech suspicious for CVA
#Suspected small lacunar infarct in the right parietal white matter seen on CT head from 02/03/2024
#Hyperglycemia
#Transaminitis with slightly elevated AST + ALT
#Obesity (BMI: 31.2)
#Family history of DM
Plan:
- q1hr neurochecks with NIHSS q shift; perform NIHSS with any change in neurochecks or clinical status in addition to stat CT head with notification to neurology and pastrycook - Continue until MRI is read
- Permissive hypertension with strict BP <180/105mmHg - IV Labetalol started, current BP 179/82
- ASA/Plavix initiated by Neurology
- Head CT 24hrs post TNK showed no evidence of acute intercranial bleed
- MRI on 02/03 - Awaiting results
- PT/OT/SR. PAYROLL MANAGER - Evaluations pending
- Bedside nursing swallowing evaluation prior to giving any PO meds
- HOB flat to help perfuse brain parenchyma
- Maintain euglycemia with goal BG 140-180 - currently 158
- Maintain SpO2 >94%
- Maintain MAP>65
- Replete electrolytes with K>4, Mg>2 - currently K=4.3, Mg=2.0
- prn nebulized bronchodilators diet � patient not currently
- Incentive spirometer encouraged
- Possible RALPH, recommend outpatient evaluation
- Patient transferred to Telemetry for further management
- DVT ppx: SCDs for now
Critical care statement: A total of 40 minutes of critical care time was provided for this patient today. This includes management of unstable vital signs, evaluation of the patient at bedside, reviewing the patient's pertinent medical records
including radiographs, microbiology, laboratory evaluations, and discussion with primary team, consultants, pharmacy, nutrition, physical therapy, case management, charge nurse, critical care nursing, and respiratory therapy.
Data:
CT head 02/04/2024: No evidence of acute intracranial bleed. The ventricles are normal in size, configuration, and position. Brain parenchyma is normal attenuation except for the small focus of low-attenuation in the right posterior periventricular
white matter. This is stable. Again, this may be an acute or old infarct. It may also be due to periventricular small vessel ischemic disease.. There is no intra- or extra-axial mass, hemorrhage, or fluid collection. There is no midline shift nor
mass effect. Visualized paranasal sinuses are free of mucosal disease.
CT head 02/03/2024: Probable small lacunar infarct in the right parietal white matter as described above. This may be acute or chronic. This could further be evaluated by MR examination if indicated clinically
CTA head/neck 02/03/2024:
No acute pathology identified. No evidence of M1 or M2 occlusion.
Greater than 70% focal stenosis of the proximal left internal carotid artery as described above.
Possible A1 2 mm aneurysm. This would better be evaluated by a nonurgent MRA examination
Multilevel cervical spine degenerative disc disease.
Mild reversal of normal cervical spinal lordosis. This can be seen with muscular spasm
Less than grade 1 anterolisthesis of C4 on C5
Subjective Dataa
Subjective Data
Date of Service:
Date of Service: February 04, 2024
Patient offers no complaints and states he feels much better. Is able to use his left limbs normally.
Objective Data
Data Reviewed
Vital Signs / I&O / Oxygen:
Vital Signs
Temp Pulse Resp BP Pulse Ox
98.4 F 78 17 190/103 98
02/04/24 07:51 02/04/24 09:04 02/04/24 09:00 02/04/24 09:04 02/04/24 08:30
Intake and Output
02/03/24 02/04/24 02/05/24
06:59 06:59 06:59
Intake Total 37.5 / 37.5 240 / 240 120 / 120
Output Total 1600 / 1600
Balance 37.5 / 37.5 -1360 / -1360 120 / 120
SaO2 98
Physical Exam
General: Comfortable
HEENT: Normocephalic
Cardiovascular: Regular Rhythm
Respiratory: Clear
GI: Soft
Neurology: Awake, Alert and Oriented
Skin: Warm and Dry
Labs/Micro/Reports
Lab Data
02/04/24 03:47
02/04/24 03:47

Documented by User: Uriel Hdez MD 02/04/24 12:10
Assessment
-
Assessment: 63-year-old male with no known past medical history presented with left-sided weakness and slurred speech. Patient felt well earlier prior to arrival and went to bed at around 9 PM which was his LKN. noticed that he could not
move his left side well at around 11:30 PM/midnight. Also noted slurred speech, and patient brought to the ER for further evaluation. Upon further questioning, patient noted left-sided weakness around 9:30 PM. Initial vitals showed pulse rate 87,
respiratory rate 20, BP 187/116, and SpO2 96% on room air. Initial NIHSS: 5. Initial labs showed Hb 15.3, INR 0.87, glucose 200, and troponin negative at <0.012. Stroke alert called and initial CT head showed suspected small lacunar infarct in
the right parietal white matter, which could be acute or chronic. CTA head/neck showed no acute pathology, with >70% stenosis of the proximal left ICA with a suspected a 1 to 2 mm aneurysm. Patient considered a tPA candidate � TNK was administered
at 02/03/2024 at 0126. He was admitted to the ICU for further care, and critical care services consulted for additional management/recommendations.
Chronic conditions [facility] SPECIALTY: No known past medical history
Impression:
#Left-sided hemiparesis + slurred speech suspicious for CVA
#Suspected small lacunar infarct in the right parietal white matter seen on CT head from 02/03/2024
#Hyperglycemia
#Transaminitis with slightly elevated AST + ALT
#Obesity (BMI: 31.2)
#Family history of DM
Plan:
- q1hr neurochecks with NIHSS q shift; perform NIHSS with any change in neurochecks or clinical status in addition to stat CT head with notification to neurology and pastrycook - Continue until MRI is read
- Permissive hypertension with strict BP <180/105mmHg - IV Labetalol started, current BP 179/82
- ASA/Plavix initiated by Neurology
- Head CT 24hrs post TNK showed no evidence of acute intercranial bleed
- MRI on 02/03 -no evidence for intracranial hemorrhage. Acute/subacute infarct noted.
- PT/OT/SR. PAYROLL MANAGER - Evaluations pending
- Bedside nursing swallowing evaluation prior to giving any PO meds
- HOB flat to help perfuse brain parenchyma
- Maintain euglycemia with goal BG 140-180 - currently 158
- Maintain SpO2 >94%
- Maintain MAP>65
- Replete electrolytes with K>4, Mg>2 - currently K=4.3, Mg=2.0
- prn nebulized bronchodilators diet � patient not currently
- Incentive spirometer encouraged
- Possible RALPH, recommend outpatient evaluation
- Patient transferred to Telemetry for further management
- DVT ppx: SCDs for now
Data:
CT head 02/04/2024: No evidence of acute intracranial bleed. The ventricles are normal in size, configuration, and position. Brain parenchyma is normal attenuation except for the small focus of low-attenuation in the right posterior periventricular
white matter. This is stable. Again, this may be an acute or old infarct. It may also be due to periventricular small vessel ischemic disease.. There is no intra- or extra-axial mass, hemorrhage, or fluid collection. There is no midline shift nor
mass effect. Visualized paranasal sinuses are free of mucosal disease.
CT head 02/03/2024: Probable small lacunar infarct in the right parietal white matter as described above. This may be acute or chronic. This could further be evaluated by MR examination if indicated clinically
CTA head/neck 02/03/2024:
No acute pathology identified. No evidence of M1 or M2 occlusion.
Greater than 70% focal stenosis of the proximal left internal carotid artery as described above.
Possible A1 2 mm aneurysm. This would better be evaluated by a nonurgent MRA examination
Multilevel cervical spine degenerative disc disease.
Mild reversal of normal cervical spinal lordosis. This can be seen with muscular spasm
Less than grade 1 anterolisthesis of C4 on C5
--- NOTE | 2024-02-04 11:34 | PTCARENOTE ---
Received patient from ICU via wheelchair , able to ambulate to bed with stand by assist. Pt able to follow commands, speech slow with mild aphasia. In echo at present .
[2024-02-04 11:59] LABS: Glucose - Point of Care 171 mg/dl (70-99)
--- NOTE | 2024-02-04 12:11 | CM ---
CM following re: discharge planning.
Reviewed pt's chart, met with pt.
Pt is a 63 year old male, admitted with primary dx of CVA/TIA. MRI performed today.
Pt reports he lives with a girlfriend in a 2[address], 1 step to enter, has no children. Pt described himself as independent in all areas [employer], drives, works. Pt reports he has no functional limitations.
PT and OT will evaluate the pt t determine a level of care at discharge.
PCP: Pt reports he left [facility] and is looking for a new PCP. Pt declined to have a list of PCP offices i the area.
Pharmacy: [facility]
D/C plan: home with anticipated no needs. Significant other to transport at discharge.
CM will follow with discharge plan updates as hospitalization progresses
[2024-02-04] MEDS: NOVOLOG FLEXPEN-LOW RESISTANCE 1 UNITS SC (13:22)
[2024-02-04 15:23] LABS: Glucose - Point of Care 124 mg/dl (70-99)
--- NOTE | 2024-02-04 16:54 | CON.MD ---
Documented by User: Amy Bourgeois MD, Resident 02/05/24 09:44
Consultation - Medical
-
Referring Provider: Elaine Guallpa MD
Chief Complaint: CVA with left sided hemiparesis
History of Present Illness: The patient is a 63 year-old right handed male with no known PMH presented to ER on 02/03/24 complaining from left sided weakness and slurred speech.Patient received tenecteplase at ED. The symptoms of the patient were
significantly resolved after thrombolytic treatment and blood pressure control. History obtained from patient and his at the bedside. Today he had follow up neurologic studies after TNK treatment and further studies to understand the
underlying problem of CVA. He had head CT, head MRI and Cerebrovascular US.
Past Medical History: Patient denies any chronic medical disease and denies any medication, presented to ER with HT
Procedure History: Reports None
Family History: DM
Functional Level Premorbidly: Independent with all activities
Functional Level Currently: Sit to stand- Modified independence, Stand to sit- Modified independence, Ambulation Patient ambulated 100 ft x 1 without AD and assistance ranging from Min A x 1 to contact guard, Weight Bearing Status-Full weight
bearing, Gait comment- intermittent increased lateral sway- intermittent narrow NAFISA with turning corners in hallway- decreased bilateral hip extension
Social History
Tobacco: Denies
Alcohol:Occasional
Drug use: Denies
Lives with: family (with )
24-hour assistance available: No
Number of floors: One story home
# steps to enter: 1 st floor set up. [place] , does have full basement, which he goes down
# steps to second floor:
Potential First floor set up:Available
Driving: Yes
Allergies
Allergy/AdvReac Type Severity Reaction Status Date / Time
No Known Allergies Allergy Verified 02/03/24 00:52
Home Medications
aspirin 81 mg tablet,delayed release 81 mg PO DAILY Blood Clot Prevention/Tx 02/03/24
vitamin E 1 tab PO DAILY Supplement 02/03/24
Vitals:
Vital Signs
Temp Pulse Resp BP Pulse Ox
98.5 F 68 19 177/85 97
02/04/24 15:09 02/04/24 15:09 02/04/24 15:09 02/04/24 15:09 02/04/24 15:09
Physical Exam:
HEENT: PERRLA
General Appearance/Observation: Well-developed, well-nourished individual in no apparent distress.
Respiratory: Clear to Auscultation. No respiratory distress
Cardiac: Regular Rhythm and S1/S2
GI: Soft and Nontender
Musculoskeletal: No Edema. Left upper and lower extremity weakness
Pulses: dorsalis pedis 2+ bilaterally
Skin: Warm and Dry; Negative Rash
Neuro: AO x 3 and left sided hemiparesis
Mood/Affect: Appropriate
Pain/Comfort Assessment: Denies
Genitourinary: No Linares
Rectal Exam: Deferred
Extremities: Edema: None Cyanosis: None Trophic changes: None
Neurology Exam:
Orientation: Alert, Oriented to self, Time, Place
Memory: Intact immediately
Higher cortical function
Repetition: Intact
Comprehension: Intact
Two step command: Intact
Naming: Intact
Cranial Nerves:
CNII: Pupillary light reflex: Intact Visual Field: Intact
CN III, IV, : Extraocular muscles: Intact
CN V: Facial Sensation at Forehead: Intact, Maxilla: Intact, Mandible: Intact
CN VII: Facial movement: Left fascial side weakness
CN VIII: Hearing: Normal with talking
CN IX/X: Speech & swallow: Minimal expressive aphasia, slurred speech.
CN XI: Shoulder shrug: Symmetric
CN XII: Tongue protrusion: Midline
Sensory:
Light touch: Intact in bilateral upper and lower extremities. Denies diminished sensation on the left side by light touching.
Reflexes:
Biceps: 2+ bilaterally
Brachioradialis: 2+ bilaterally
Triceps: 2+ bilaterally
Patellar: 2+ on the right/ 3+ on the left side
Achilles: on the right/ 3+ on the left side
Babinski: Down going on the right side, going up on the left side
Clonus: None
Estevan: Negative on right and left side.
Cerebellar: Dysmetria/Ataxia: Dysmetria on the left side,
Musculoskeletal:
Motor: (Manual muscle scale 0-5)
Muscle SA EF WE EE FF FA HF KE DF EHL PF
Right 5 5 5 5 5 5 5 5 5 5 5
Left 5 4 4 4 4 3(+) 4 4 4 4 5
Tone: Normal in all extremities
Range of Motion: Passively within normal limits in all extremities
Laboratory Data:
Laboratory Data
PT 12.3 Sec (11.4-14.6) 02/03/24 04:33
APTT 29.2 Sec (23.4-35.0) 02/03/24 04:33
Total Bilirubin 0.7 mg/dl (0.2-1.3) 02/04/24 03:47
AST 34 U/L (17-59) 02/04/24 03:47
ALT 50 U/L (0-50) 02/04/24 03:47
Alkaline Phosphatase 78 U/L (38-126) 02/04/24 03:47
Diagnostic Results:
Echo ON 02/04/24:CONCLUSIONS: Normal left ventricular size and systolic function. Mild concentric lvh. No regional wall motion abnormalities are seen. LV ejection fraction is 70% by Smallwood's method of discs. Normal diastolic function.
Head MRI: IMPRESSION: Luminal irregularity of the left superior vertebral artery and the basilar artery, with no evidence for greater than 50% diameter reduction. 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
junction of the A1 and A2 segments.
No hemodynamically significant narrowing identified involving the anterior circulation.
Brain MRI: IMPRESSION: Focal area of abnormal signal involving the right central rangel, compatible with acute to subacute infarction. Focus of abnormal FLAIR and T2-weighted signal involving the periventricular white matter in the right parietal
lobe, corresponding to region of decreased density on recent CT examinations. This would suggest an area of chronic ischemia or old infarction. Mild to moderate diffuse atrophy.
Carotid Ultrasound:IMPRESSION:
1. Right carotid: No significant plaque. No velocity elevation to suggest any significant right internal carotid artery stenosis.
2. Left carotid: Soft plaque internal carotid artery. Velocity profile consistent with greater than 70% internal carotid artery stenosis.
3. Antegrade flow bilateral vertebral arteries, however right vertebral artery waveform appears to take on a pre-stenotic characteristic.
Assessment
The patient is a 63 year old right handed male who was admitted to hospital with left sided CVA symptoms and was given TNK treatment at ER. His symptoms significantly resolved after thrombolytic treatment and blood pressure control. The patient
has been receiving further studies to identify possible underlying issues for the CVA attack.
CVA: Patient arrived to ER within the window and with a significant neurologic deficit. TNK administered in the ED. Post-TNK care was completed per protocol including BP management, neuro checks, (Head CT 24hrs post TNK showed no evidence of acute
intracranial bleed. MRI on 02/03 -no evidence for intracranial hemorrhage. Acute/subacute infarct noted). Continue new dual platelet therapy with aspirin and clopidogrel, then clopidogrel alone as the patient presented with aspirin as a routine
therapy.
Left nondominant hemiparesis: High risk for falls and sliding out of chair/bed. Safety reinforced. Avoid using affected arm to help lift or pull patient as this will cause trauma to the shoulder.
Hypertension: BP significantly elevated in the ED. Nicardipine and labetalol infusion initiated. Patient will likely require PO medications to be started prior to discharge.Goal of hypertension due to left carotid artery stenosis, systolic blood
pressure should be maintained less than 160 and diastolic blood pressure less than 90.
Hyperlipidemia: Continue statin and check LFTs
DM-II:Random glucose 200 with strong family history and lack of routine health maintenance. Check A1C. Follow glucose and cover with SSI as needed.Maintain euglycemia with goal BG 140-180. Would likely benefit from PO med regimen to start prior to
discharge.
Dysphagia: speech evaluation, oral care protocol, chlorhexidine rinse after meals and HS, aspiration precautions. Bedside nursing swallowing evaluation prior to giving any PO meds. Advance diet as tolerated.
Dysarthria/Aphasia : Continue speech therapy
Further Studies:Patient should be considered for plantable brass buffer due to possible occult atrial fibrillation. Cardiology consultation can be considered.
Plan
The patient would benefit from acute rehabilitation vs outpatient and SNF. PM&R PT/OT to increase independence with ADLs, improve balance, coordination, endurance, strength, mobility, community reintegration, decreased burden of care on others and
family education.
Please do not hesitate to contact PM&R team for any questions and concerns.
Thanks Dr Elan Tillman involving me in this patient`s care.
Amy Bourgeois MD
Transitional Year Residency

Documented by User: Elan Tillman MD 02/05/24 11:26
Consultation - Medical
-
Referring Provider: Elaine Guallpa MD
Chief Complaint: CVA with left sided hemiparesis
History of Present Illness: The patient is a 63 year-old right handed male with no known PMH presented to ER on 02/03/24 complaining from left sided weakness and slurred speech. Initial CT of the head - Probable small lacunar infarct in the right
parietal white matter. This may be acute or chronic. CTA of the head and neck with no acute pathology identified, no evidence of M1 or M2 occlusion. He was seen by neurology and received tenecteplase with stroke concern. He was admitted to the
ICU for monitoring. His symptoms significantly improved after thrombolytic treatment and blood pressure control. History obtained from patient and his at the bedside. Repeat CT of the head 02/03 with no evidence of acute intracranial bleed
and small stable focus of low-attenuation in the right periventricular region. Carotid ultrasound with no significant plaque in the right carotid but greater than 70% internal carotid artery stenosis on the left. MRI of the brain noting:
IMPRESSION: Focal area of abnormal signal involving the right central rangel, compatible with acute to subacute infarction. Focus of abnormal FLAIR and T2-weighted signal involving the periventricular white matter in the right parietal lobe,
corresponding to region of decreased density on recent CT examinations. This would suggest an area of chronic ischemia or old infarction. Mild to moderate diffuse atrophy. Head MRA 02/03: IMPRESSION: Luminal irregularity of the left superior
vertebral artery and the basilar artery, with no evidence for greater than 50% diameter reduction. 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 No hemodynamically significant
narrowing identified involving the anterior circulation. Echocardiogram with EF 70% and no thrombus or PFO noted.
He still has expressive aphasia and some difficulties with ambulation/ADLs. Still having difficulty with balance.
Past Medical History: Patient denies any chronic medical disease and denies any medication, presented to ER with HT
Procedure History: Reports None
Family History: DM
Functional Level Premorbidly: Independent with all activities
Functional Level Currently: Sit to stand- Modified independence, Stand to sit- Modified independence, Ambulation Patient ambulated 100 ft x 1 without AD and assistance ranging from Min A x 1 to contact guard, Weight Bearing Status-Full weight
bearing, Gait comment- intermittent increased lateral sway- intermittent narrow NAFISA with turning corners in hallway- decreased bilateral hip extension
Social History
Tobacco: Denies
Alcohol:Occasional
Drug use: Denies
Lives with: family (domestic partner)
24-hour assistance available: No
Number of floors: One story home
# steps to enter: 1 st floor set up. [place] , does have full basement, which he goes down
Potential First floor set up:Available
Driving: Yes
Allergies
Allergy/AdvReac Type Severity Reaction Status Date / Time
No Known Allergies Allergy Verified 02/03/24 00:52
Home Medications
aspirin 81 mg tablet,delayed release 81 mg PO DAILY Blood Clot Prevention/Tx 02/03/24
vitamin E 1 tab PO DAILY Supplement 02/03/24
Vitals:
Vital Signs
Temp Pulse Resp BP Pulse Ox
98.5 F 68 19 177/85 97
02/04/24 15:09 02/04/24 15:09 02/04/24 15:09 02/04/24 15:09 02/04/24 15:09
Physical Exam:
HEENT: PERRLA
General Appearance/Observation: Well-developed, well-nourished male in no apparent distress.
Respiratory: Clear to Auscultation. No respiratory distress
Cardiac: Regular Rhythm and S1/S2
GI: Soft and Nontender
Musculoskeletal: No Edema. No tenderness during exam
Pulses: dorsalis pedis 2+ bilaterally
Skin: Warm and Dry; Negative Rash
Mood/Affect: Appropriate
Pain/Comfort Assessment: Denies
Genitourinary: No Linares
Extremities: Edema: None Cyanosis: None Trophic changes: None
Neurology Exam:
Orientation: Alert, Oriented to self, Time, Place
Memory: Intact immediately
Repetition: Intact
Comprehension: Intact
Two step command: Intact
Naming: Intact
Cranial Nerves:
CNII: Pupillary light reflex: Intact Visual Field: Intact
CN III, IV, : Extraocular muscles: Intact
CN V: Facial Sensation at Forehead: Intact, Maxilla: Intact, Mandible: Intact
CN VII: Facial movement: Left facial weakness
CN VIII: Hearing: Intact
CN IX/X: Speech & swallow: Mild to moderate expressive aphasia, mild dysarthria.
CN XI: Shoulder shrug: Symmetric
CN XII: Tongue protrusion: Midline
Sensory:
Light touch: Intact in bilateral upper and lower extremities. No extinction to double simultaneous stimulation
Reflexes:
Biceps: 2+ bilaterally
Brachioradialis: 2+ bilaterally
Triceps: 2+ bilaterally
Patellar: 2+ bilaterally
Achilles: 2+ bilaterally
Babinski: Down going on the right side, going up on the left side
Clonus: None
Estevan: Negative on right and left side.
Cerebellar: Dysmetria/Ataxia: No dysmetria bilaterally, difficulty with motor control on left strength versus ataxia
Musculoskeletal:Motor: (Manual muscle scale 0-5)
Muscle SA EF WE EE FF FA HF KE DF EHL PF
Right 5 5 5 5 5 5 5 5 5 5 5
Left 4 4 4 4 4 3(+) 4 4 4 4 4
Tone: Normal in all extremities
Range of Motion: Passively within normal limits in all extremities
Laboratory Data:
Laboratory Data
PT 12.3 Sec (11.4-14.6) 02/03/24 04:33
APTT 29.2 Sec (23.4-35.0) 02/03/24 04:33
Total Bilirubin 0.7 mg/dl (0.2-1.3) 02/04/24 03:47
AST 34 U/L (17-59) 02/04/24 03:47
ALT 50 U/L (0-50) 02/04/24 03:47
Alkaline Phosphatase 78 U/L (38-126) 02/04/24 03:47
Diagnostic Results:
Echo ON 02/04/24:CONCLUSIONS: Normal left ventricular size and systolic function. Mild concentric lvh. No regional wall motion abnormalities are seen. LV ejection fraction is 70% by Smallwood's method of discs. Normal diastolic function.
Head MRI: IMPRESSION: Luminal irregularity of the left superior vertebral artery and the basilar artery, with no evidence for greater than 50% diameter reduction. 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
junction of the A1 and A2 segments.
No hemodynamically significant narrowing identified involving the anterior circulation.
Brain MRI: IMPRESSION: Focal area of abnormal signal involving the right central rangel, compatible with acute to subacute infarction. Focus of abnormal FLAIR and T2-weighted signal involving the periventricular white matter in the right parietal
lobe, corresponding to region of decreased density on recent CT examinations. This would suggest an area of chronic ischemia or old infarction. Mild to moderate diffuse atrophy.
Carotid Ultrasound:IMPRESSION:
1. Right carotid: No significant plaque. No velocity elevation to suggest any significant right internal carotid artery stenosis.
2. Left carotid: Soft plaque internal carotid artery. Velocity profile consistent with greater than 70% internal carotid artery stenosis.
3. Antegrade flow bilateral vertebral arteries, however right vertebral artery waveform appears to take on a pre-stenotic characteristic.
Assessment
63 year old right handed male who was admitted to hospital with left sided CVA symptoms and was given TNK treatment at ER. His symptoms significantly resolved after thrombolytic treatment and blood pressure control. The patient has been receiving
further studies to identify possible underlying issues for the CVA attack.
Plan
PM&R PT/OT to increase independence with ADLs, improve balance, coordination, endurance, strength, mobility, community reintegration, decreased burden of care on others and family education.
CVA: Patient arrived to ER within the window and with a significant neurologic deficit. TNK administered in the ED. Post-TNK care was completed per protocol including BP management, neuro checks, (Head CT 24hrs post TNK showed no evidence of acute
intracranial bleed. MRI on 02/03 -no evidence for intracranial hemorrhage. Acute/subacute infarct noted). Continue new dual platelet therapy with aspirin and clopidogrel for 21 days, then clopidogrel alone as the patient presented with aspirin as a
routine therapy.
Left nondominant hemiparesis: High risk for falls and sliding out of chair/bed. Safety reinforced. Avoid using affected arm to help lift or pull patient as this will cause trauma to the shoulder.
Hypertension: BP significantly elevated in the ED. Nicardipine and labetalol infusion initiated. Patient will likely require PO medications to be started prior to discharge.Goal of permissive hypertension due to left carotid artery stenosis,
systolic blood pressure should be maintained less than 160 and diastolic blood pressure less than 90.
Hyperlipidemia: statin
DM-II: Elevated glucose with hemoglobin A1c is 7.1. Consider dietary changes and possibility of oral agent.
Dysphagia: speech, aspiration precautions. Diet of soft bite-size solids with thin liquids per speech.
Dysarthria/Aphasia : speech therapy
Further Studies:Patient should be considered for implantable brass buffer due to possible occult atrial fibrillation. Cardiology consultation can be considered.
Discharge disposition: The patient would benefit from a short acute rehabilitation stay to help with independence with ADLs, improve balance, coordination, endurance, strength, mobility, community reintegration, decreased burden of care on others
and family education. He requires min assist ambulating 100 feet and continues with aphasia. Patient is willing to participate in acute rehab in order to improve his functional status prior to outpatient therapy.
Please do not hesitate to contact PM&R team for any questions and concerns.
Thanks Dr Elan Tillman involving me in this patient`s care.
Amy Bourgeois MD
Transitional Year Residency
Attending Statement:
I saw and examined the patient 02/05/2024. Reviewed care plan with patient, and resident. I agree with the above subjective and physical exam, and plan as documented by Amy Bourgeois MD with adjustments made as necessary. Overall patient is making
improvements. Still with left-sided hemiparesis requiring assistance with ambulation, has continued aphasia. Also requiring supervision with ADLs. He would benefit most from a short acute inpatient rehabilitation stay to help with his functional
deficits and transition to outpatient therapy. Reviewed with Dr. Islas.
--- NOTE | 2024-02-04 16:54 | PTCARENOTE ---
Pt reports voiding in urinal around 14:00 today, bladder scanned for 205 mls.
[2024-02-04] MEDS: LIPITOR 80 MG PO (18:01)
[2024-02-04 19:41] LABS: Hepatitis C Antibody Negative (Negative)
[2024-02-04 21:17] LABS: Glucose - Point of Care 156 mg/dl (70-99)
[2024-02-05 03:12] VITALS: BP 128/90
[2024-02-05 07:28] VITALS: BP 157/84
[2024-02-05 07:48] LABS: Glucose - Point of Care 174 mg/dl (70-99)
[2024-02-05] MEDS: ASPIR LOW (ENTERIC COATED) 81 MG PO (09:14)
[2024-02-05] MEDS: NOVOLOG FLEXPEN-LOW RESISTANCE 1 UNITS SC (09:14)
[2024-02-05] MEDS: PLAVIX 75 MG PO (09:14)
--- NOTE | 2024-02-05 10:44 | W.PN.HOSP.TC ---
Today's Communication/Plan
-
expect DC home later today with outpatient physical therapy, confirming plan with Neurology
Assessment / Plan
Assessment / Plan
HPI: 63y M with no known PMH (has not seen a doctor for years); p/w Left sided weakness and slurred speech. History obtained from patient and his at the bedside. Patient was feeling well earlier on DOA and went to bed around 9 PM. went
into bed around 11:30 / 12 MN and patient complained that he could not move his L side very well. She noted that he was slurring his speech and they presented immediately to the ED for evaluation.
Patient states that he probably first noted the weakness on his L around 9:30 PM.
Patient denies any prior history of CVA, AK, etc.
HEAD CT 02/03/24
IMPRESSION:
Probable small lacunar infarct in the right parietal white matter as described above. This may be acute or chronic. This could further be evaluated by MR examination if indicated clinically
HEAD/NECK CTA
IMPRESSION: No acute pathology identified. No evidence of M1 or M2 occlusion.
Greater than 70% focal stenosis of the proximal left internal carotid artery as described above.
Possible A1 2 mm aneurysm. This would better be evaluated by a nonurgent MRA examination
Multilevel cervical spine degenerative disc disease.
Mild reversal of normal cervical spinal lordosis. This can be seen with muscular spasm
Less than grade 1 anterolisthesis of C4 on C5
MRI Brain 02/01/26
IMPRESSION: Focal area of abnormal signal involving the right central rangel, compatible with acute to subacute infarction.
Focus of abnormal FLAIR and T2-weighted signal involving the periventricular white matter in the right parietal lobe, corresponding to region of decreased density on recent CT examinations. This would suggest an area of chronic ischemia or old
infarction.
Mild to moderate diffuse atrophy.
A/P:
# Acute CVA
-CT in the ED shows R parietal lacune - possible acute. CTA > 70% focal stenosisi proximal left ICA (opp side injury)
-s/p tPA 02/02 @ 1:26 AM
-MRI this AM
-asa/plavix initiated by neurology
-new start statin
-PT recommending outpatient therapy
# Hypertension
BP significantly elevated in the ED. IV Labetalol administered. Follow for effect and continue PRN dosing as needed.
-s/p nicardipine
-confirming with Neurology OK to start new med, would start lisinopril 5
# DM-II
Random glucose 200 with strong family history and lack of routine health maintenance.
-A1c 7.1%
-start metformin, now 48 hours post contrast
-ISS
-diabetic diet
# Obesity due to excess calories
Affects all aspects of care.
Encourage healthy diet and increased activity with goal of weight loss.
DVT Prophylaxis: SCDs
Code Status: Full
DW RN
DW SO on the phone
patient know importance of finding a PCP and getting appointment within next week
Anticipated Discharge: Within 24 hours
Subjective/Interval History
-
Date of Service: February 05, 2024
feeling well this morning
no new complaints
wants to go home
Objective Data
-
Vital Signs:
Vital Signs
Temp Pulse Resp BP Pulse Ox
98 F 65 19 157/84 95
02/05/24 07:28 02/05/24 07:28 02/05/24 07:28 02/05/24 07:28 02/05/24 07:28
I&O
02/04/24 02/05/24 02/06/24
06:59 06:59 06:59
Intake Total 240 / 240 1320 / 1320
Output Total 1600 / 1600 650 / 650
Balance -1360 / -1360 670 / 670
Review of Systems
-
History Source: Patient
All other systems: Reviewed and negative
Physical Exam
-
General: No Apparent Distress
HEENT: PERRLA
Respiratory: Clear to Auscultation; Negative Wheezes
Cardiac: Regular Rhythm and S1/S2
GI: Soft and Nontender
Musculoskeletal: No Edema
Skin: Warm and Dry; Negative Rash
Neuro: AO x 3 and Other (slight LUE pronator drift, 5/5 strength elbow flexion and extension; 4+/5 strength LLE strength)
Psych: Calm
Data Reviewed
-
Diagnostic Radiology: Report Reviewed by me
Labs: Labs Reviewed by me
[2024-02-05 11:17] VITALS: BP 155/85
[2024-02-05 11:29] LABS: Glucose - Point of Care 236 mg/dl (70-99)
[2024-02-05 11:45] VITALS: BP 155/85; PULSE 63
[2024-02-05] MEDS: GLUCOPHAGE 500 MG PO (12:21)
[2024-02-05] MEDS: ZESTRIL 5 MG PO (12:21)
[2024-02-05] MEDS: NOVOLOG FLEXPEN-LOW RESISTANCE 2 UNITS SC (13:06)
[2024-02-05 13:57] VITALS: BP 155/99; PULSE 75; O2SAT 99
--- NOTE | 2024-02-05 14:50 | CM ---
Addendum entered by Patrizia Mittal 02/05/24 17:07:
Plan is to home Needs scripts for PT, OT and Speech
Addendum entered by Patrizia Mittal 02/05/24 16:58:
Acute rehab has been denied.
Addendum entered by Patrizia Mittal 02/05/24 16:01:
senior research manager spoke with insurance and insurance medical supervisor wants to discuss with with physiatry,
Pending Auth [id number]
Original Note:
Chart reviewed and case assistant spoke with physician and recommendation is for acute rehab at [facility] [place] [facility], options reviewed with patient.
Plan; Acute rehab at [facility] pending Auth.
[2024-02-05 15:46] VITALS: BP 144/83
[2024-02-05 16:14] LABS: Glucose - Point of Care 127 mg/dl (70-99)
[2024-02-05] MEDS: NOVOLOG FLEXPEN-LOW RESISTANCE SC (17:17)
[2024-02-05] MEDS: LIPITOR 80 MG PO (17:19)
--- NOTE | 2024-02-05 17:26 | W.DS.TRANS ---
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
-
Discharge Instructions:
Discharge Diagnosis/Procedures acute cerebrovascular accident; ishcemic stroke
Diet Low Cholesterol
Activity As tolerated
Driving Restrictions As prior to admission
Bathing Restrictions None
Blood Work BMP in one week to monitor electrolytes after
starting Lisinopril
Other Services PT,OT
Instructions:
Stand-Alone Forms:
Changes to Home Medications: Yes
Discharge Medications:
DC Medications w/original date entered in [employer]
vitamin E 1 tab PO DAILY Supplement 02/03/24
aspirin 81 mg tablet,delayed release 81 mg PO DAILY #19 tabs 02/05/24
atorvastatin 80 mg tablet 80 mg PO QPM #30 tabs 02/05/24
clopidogrel 75 mg tablet 75 mg PO DAILY #90 tabs 02/05/24
lisinopril 5 mg tablet 5 mg PO DAILY #30 tabs 02/05/24
metformin 500 mg tablet 500 mg PO DAILY #30 tabs 02/05/24
Home Medication Changes
Take aspirin and plavix together x 21 days (19 more days). Then take Plavix indefinitely thereafter.
You are newly started on Lipitor for cholesterol.
You are newly started on metformin for diabetes.
You are newly started on Lisinopril for high blood pressure - this dose may need to be adjusted by your PCP.
Pending Results: No
--- NOTE | 2024-02-06 08:52 | W.DCSUMMARY ---
Discharge Summary
Discharge Data
Date of Admission: 02/03/24
Date of Discharge: 02/05/24
-
Pending Results: No
Hospital Course
Discharging Physician : Dr. Debo Islas
Disposition : Home with outpatient physical therapy, occupational therapy and speech therapy
Primary care physician : Unknown - patient in process of making appointment
Principal Discharge diagnosis : acute cerebrovascular accident, new diagnosis of diabetes, essential hypertension, hyperlipidemia
Hospital Course :
Mr. Edgard Warren is a 63y M with no known PMH (has not seen a doctor for years); p/w Left sided weakness and slurred speech after waking up, last felt normal around 2 hours before symptoms. Head CT showed possible small lacunar infarct right
parietal matter acute versus chronic. CTA with > 70% focal stenosis proximal left ICA. He received tPA 02/02 @ 1:26 AM and was admitted to the ICU. Follow up head CT 24 hours later without acute bleed and patient was started on asa/plavix. Total
cholesterol 226, LDL 161, he is started on atorvastatin 80mg. MRI confirmed ischemic stroke right central rangel. TTE without thrombus. Patient worked with PT/OT/ST and outpatient therapy recommended. He was persistently hypertensive during
hospitalization and started on Lisinopril 5mg PO QD. A1c came back at 7.1 and he is started on Metformin 500mg PO QD (48 hours post contrast). He will be on Asa/Plavix x 3 weeks total (19 more days) then Plavix daily following.
Patient will follow up with a PCP (knows he needs to establish with one), Neurology, Vascular Surgery for left ICA Thrombus, Cardiology for further cardiac work-up for stroke (CHAU and Linq). Also per Neurology,
Hypercoagulable evaluation will be needed as outpatient, 6 weeks after stroke onset.
Time spent on discharge was 40 minutes.
Important imaging findings :
HEAD CT 02/03/24
IMPRESSION:
Probable small lacunar infarct in the right parietal white matter as described above. This may be acute or chronic. This could further be evaluated by MR examination if indicated clinically
HEAD/NECK CTA
IMPRESSION: No acute pathology identified. No evidence of M1 or M2 occlusion.
Greater than 70% focal stenosis of the proximal left internal carotid artery as described above.
Possible A1 2 mm aneurysm. This would better be evaluated by a nonurgent MRA examination
Multilevel cervical spine degenerative disc disease.
Mild reversal of normal cervical spinal lordosis. This can be seen with muscular spasm
Less than grade 1 anterolisthesis of C4 on C5
MRI Brain 02/01/26
IMPRESSION: Focal area of abnormal signal involving the right central rangel, compatible with acute to subacute infarction.
Focus of abnormal FLAIR and T2-weighted signal involving the periventricular white matter in the right parietal lobe, corresponding to region of decreased density on recent CT examinations. This would suggest an area of chronic ischemia or old
infarction.
Mild to moderate diffuse atrophy.
Vascular US 02/04/24
IMPRESSION:
1. Right carotid: No significant plaque. No velocity elevation to suggest any significant right internal carotid artery stenosis.
2. Left carotid: Soft plaque internal carotid artery. Velocity profile consistent with greater than 70% internal carotid artery stenosis.
3. Antegrade flow bilateral vertebral arteries, however right vertebral artery waveform appears to take on a pre-stenotic characteristic.
TTE 02/04/24
CONCLUSIONS
Normal left ventricular size and systolic function. Mild concentric lvh. No
regional wall motion abnormalities are seen. LV ejection fraction is 70% by
Smallwood's method of discs. Normal diastolic function.
Indications:
stroke/TIA
Procedure findings :
Discharge Plan
-
Patient Disposition: Home (Routine Discharge)
Discharge Diagnosis/Procedures: acute cerebrovascular accident; ishcemic stroke
Diet: Low Cholesterol
Activity: As tolerated
Driving Restrictions: As prior to admission
Bathing Restrictions: None
Blood Work: BMP in one week to monitor electrolytes after starting Lisinopril
Other Services: PT and OT
Referrals:
Fei Linares III, MD [Active] - in three to four weeks
Ryan Patel MD [Active] - in four to six weeks
Edgard Henriquez MD [Active] - in one to two weeks
Uriel Hdez MD [Active] - (Obstructive sleep apnea evaluation)
NONE,* [Family Provider] - in less than 1 week
Additional Discharge Medication Instructions: Please make an appointment with a PCP within one week - let them know you were just discharged from the hospital.
Follow up with Dr. Henriquez (cardiology) for further cardiac work-up on cause for stroke.
Follow up with Dr. Linares (Vascular Surgery) for further monitoring of carotid artery stenosis on left.
Take aspirin and plavix together x 21 days (19 more days). Then take Plavix indefinitely thereafter. (STOP) aspirin after 19 more days.
You are newly started on Lipitor for cholesterol.
You are newly started on metformin for diabetes.
You are newly started on Lisinopril for high blood pressure - this dose may need to be adjusted by your PCP.
Prescriptions:
New
metformin 500 mg Tablet
500 mg PO DAILY Qty: 30 0RF
atorvastatin 80 mg Tablet
80 mg PO QPM Qty: 30 0RF
clopidogrel 75 mg Tablet
75 mg PO DAILY Qty: 90 0RF
aspirin 81 mg Tablet,Delayed Release (Dr/Ec)
81 mg PO DAILY Qty: 19 0RF
lisinopril 5 mg Tablet
5 mg PO DAILY Qty: 30 0RF
Continued
vitamin E
1 tab PO DAILY
Rx Instructions:
unsure of dose
Discontinued
aspirin [Aspir-Low] 81 mg Tablet,Delayed Release (Dr/Ec)
81 mg PO DAILY
Discharge Orders:
Discharge Patient (As Directed); Ordered 02/05/24
Ordered By: Debo Islas
Discharge Date and Time
Discharge Date/Time: 02/05/24 17:44
Print Language: [place]
== END 2024-02-05 17:44 | disposition home or self-care (01) | DRG 62 ==
LOC: 4 WEST ACU 03:09
PROVIDERS: Internal Medicine; Psychiatry & Neurology Neurology; ADMITTING PHYSICIAN Hospitalist; ATTENDING PHYSICIAN Student in an Organized Health Care Education/Training Program; CONSULT PHYSICIAN Internal Medicine Critical Care Medicine; CONSULT PHYSICIAN Physical Medicine & Rehabilitation; CONSULT PHYSICIAN Psychiatry & Neurology Neurology; EMERGENCY PHYSICIAN Emergency Medicine
PROC: 3E03317 Introduction of Other Thrombolytic into Peripheral Vein, Percutaneous Approach (ICD-10-PCS; 2024-02-04)
DX: I63.311 Cerebral infarction due to thrombosis of right middle cerebral artery (principal); G81.94 Hemiplegia, unspecified affecting left nondominant side; I16.9 Hypertensive crisis, unspecified; E11.65 Type 2 diabetes mellitus with hyperglycemia; I10 Essential (primary) hypertension; E78.5 Hyperlipidemia, unspecified; E66.09 Other obesity due to excess calories; Z68.30 Body mass index [BMI] 30.0-30.9, adult
CPT/HCPCS: 70450; 70496; 70498; 70544; 70551; 71045; 80048; 80053; 80061; 81003; 82248; 82962; 83036; 83735; 84100; 84484; 85025; 85027; 85610; 85730; 86803; 92507; 92523; 92610; 93005; 93306; 93880; 96374; 96375; 97116; 97129; 97162; 97166; 97530; 99285; J3101; Q9967

== ENCOUNTER 2024-02-28 14:00 | Outpatient (RCR) | payer OTHER, SELFPAY | END 2024-02-28 23:59 | disposition home or self-care (01) | LOC: ROT 14:00 | PROVIDERS: ATTENDING PHYSICIAN Student in an Organized Health Care Education/Training Program | DX: I63.9 Cerebral infarction, unspecified (principal); Z86.73 Personal history of transient ischemic attack (TIA), and cerebral infarction without residual deficits (principal); Z73.6 Limitation of activities due to disability; I69.318 Other symptoms and signs involving cognitive functions following cerebral infarction; I69.311 Memory deficit following cerebral infarction; I69.310 Attention and concentration deficit following cerebral infarction; I69.328 Other speech and language deficits following cerebral infarction | CPT/HCPCS: 96125; 97110; 97162; 97167; 97530 ==

== ENCOUNTER 2024-03-05 07:17 | Day surgery (SDC) | payer OTHER, SELFPAY ==
[2024-03-05 08:10] LABS: Glucose - Point of Care 148 mg/dl (70-99)
== END 2024-03-05 09:47 | disposition home or self-care (01) ==
LOC: CATH 07:17
PROVIDERS: ATTENDING PHYSICIAN Internal Medicine Cardiovascular Disease; FAMILY PHYSICIAN Student in an Organized Health Care Education/Training Program; OTHER PHYSICIAN Internal Medicine Cardiovascular Disease
DX: I34.0 Nonrheumatic mitral (valve) insufficiency (principal); Z86.73 Personal history of transient ischemic attack (TIA), and cerebral infarction without residual deficits; E78.5 Hyperlipidemia, unspecified; E11.9 Type 2 diabetes mellitus without complications; Z79.84 Long term (current) use of oral hypoglycemic drugs; Z79.02 Long term (current) use of antithrombotics/antiplatelets
CPT/HCPCS: 93312; 93320; 93325; 82962

== ENCOUNTER 2024-03-20 06:07 | Inpatient (IN) | payer OTHER, SELFPAY ==
[2024-03-17 09:39] VITALS: BMI 31.5
[2024-03-17 10:04] LABS: % Basophils 0.4 % (0-2); % Eosinophils 1.9 % (0-6); % Immature Granulocytes 0.6 % (0-0.5); % Lymphocytes 21.3 % (20.5-51.1); % Monocytes 10.4 % (1.7-9.3); % Neutrophils 65.4 % (42.2-75.2); Absolute Eosinophils 0.1 10^3/uL (0-0.7); Absolute Lymphocytes 1.2 10^3/uL (1.2-3.4); Absolute Monocytes 0.6 10^3/uL (0.1-0.6); Absolute Neutrophils 3.5 10^3/uL (1.4-6.5); Hematocrit 41.8 % (39.0-52.0); Hemoglobin 14.4 g/dL (13.0-18.0); Mean Corp Hgb Conc. 34.4 g/dL (33.0-37.0); Mean Corpuscular Hgb 30.4 pg (27.0-31.0); Mean Corpuscular Volume 88.4 fL (80.0-94.0); Mean Platelet Volume 12.3 fL (7.4-10.4); Nucleated Red Blood Cells % 0 % (-); Platelet Count 130 10^3/uL (130-400); Red Blood Cell Count 4.73 10^6/uL (4.70-6.10); Red Cell Dist. Width 12.4 % (11.5-14.5); White Blood Cell Count 5.4 10^3/uL (4.8-10.8)
[2024-03-17 10:12] LABS: INR 0.98; PT 12.8 Sec (11.4-14.6)
[2024-03-17 10:13] LABS: APTT 28.1 Sec (23.4-35.0)
[2024-03-17 10:46] LABS: Blood Urea Nitrogen 19 mg/dl (9-20); Calcium 9.7 mg/dl (8.4-10.2); Carbon Dioxide 26 mmol/L (22-30); Chloride 103 mmol/L (98-107); Estimated Creatinine Clearance 99 ml/min; Glucose 176 mg/dl (70-99); Potassium 4.5 mmol/L (3.5-5.1); Sodium 139 mmol/L (135-145); eGFR > 60.00
[2024-03-20] VITALS (18 sets, daily range): BP systolic 122–189; BP diastolic 70–98; BMI 31.6; BMI 31.5
[2024-03-20 07:00] LABS: Glucose - Point of Care 146 mg/dl (70-99)
--- NOTE | 2024-03-20 07:06 | W.SUR.PREOP ---
Pre-Operative Surgical Note
-
I have examined this patient prior to the performance of the scheduled procedure.
The patient's condition is unchanged from the time of the current History and
Physical and the patient is able to undergo the scheduled procedure.
[2024-03-20] MEDS: BACTROBAN NASAL 1 GRAM NASAL (07:13)
[2024-03-20] MEDS: PERIDEX 0.12% ORAL RINSE 15 ML PO (07:13)
[2024-03-20] MEDS: NSS 500 IV (07:14)
--- NOTE | 2024-03-20 09:29 | W.SUR.POST ---
Surgical Immediate Post Op
Note
Pre Op Diagnosis: Carotid stenosis
Post Op Diagnosis: Same
Procedure Performed: Left carotid endarterectomy with bovine pericardial patch angioplasty and EEG monitoring
Primary Surgeon: Yasir
Assist: Chi HENDRICKS
Anesthesia: General
Estimated Blood Loss: 20cc
Fluids: See anesthesia flowsheet
Drains/Shunts: None
Specimens/Cultures: Carotid plaque
Doppler/Duplex/Angio (Y/N): Y
Complications: None
Operative Findings: Woke from anesthesia moving all extremities
[2024-03-20 10:19] LABS: Glucose - Point of Care 183 mg/dl (70-99)
[2024-03-20 10:37] LABS: Hematocrit 38.8 % (39.0-52.0); Hemoglobin 13.4 g/dL (13.0-18.0); Mean Corp Hgb Conc. 34.5 g/dL (33.0-37.0); Mean Corpuscular Hgb 30.2 pg (27.0-31.0); Mean Corpuscular Volume 87.6 fL (80.0-94.0); Mean Platelet Volume 11.6 fL (7.4-10.4); Platelet Count 143 10^3/uL (130-400); Red Blood Cell Count 4.43 10^6/uL (4.70-6.10); Red Cell Dist. Width 12.6 % (11.5-14.5); White Blood Cell Count 11.9 10^3/uL (4.8-10.8)
[2024-03-20 10:44] LABS: INR 1.02; PT 13.4 Sec (11.4-14.6)
[2024-03-20 10:45] LABS: APTT 26.7 Sec (23.4-35.0)
[2024-03-20 10:47] LABS: Blood Urea Nitrogen 15 mg/dl (9-20); Calcium 8.4 mg/dl (8.4-10.2); Carbon Dioxide 20 mmol/L (22-30); Chloride 107 mmol/L (98-107); Estimated Creatinine Clearance 99 ml/min; Glucose 213 mg/dl (70-99); Potassium 4.5 mmol/L (3.5-5.1); Sodium 139 mmol/L (135-145); eGFR > 60.00
[2024-03-20] MEDS: NOVOLOG vial 1 UNITS SC (11:01)
[2024-03-20] MEDS: NSS 1000 IV ×2 (11:40→20:19)
--- NOTE | 2024-03-20 12:00 | PTCARENOTE ---
Rec'd pt at 1125 via bed from PACU. Rec'd pt awake alert and oriented. Denies dizziness or headache. Speech is clear. Smile is even and tongue protrudes midline. Able to raise eyebrows and close eyes. SUAREZ. No weakness noted and denies numbness or
tingling. Both pt and s/o deny any deficit from previous stroke in January. Admits to mild 1/10 L neck soreness. L neck incision is approimated with sugical adhesive in place.CHAU Skin otherwise is pink wm and dry. Respirs are unlabored. Rec'd pt on
2l nc with sats of 98%. BS are clear. Monitor SR. VS as documented. Pt with R radial A line. Site wnl. Good CMS checks to distal extrem. Zeroed and recalibrated. Overall congruent with cuff BP. + pulses. No edema. Denies chest pain. Abd is soft with
+ BS. Denies nausea. Admitted being thirsty and tolerating water well. Denies need to void currently. IV NSS infusing via R AC IV site at 80ml/hr. Turned and repositioned. Parital CHG bath given. ECG obtained and will obtain protocol CXray. Plan of
care reviewed with pt and s/o. Call walker in reach.
[2024-03-20 13:27] LABS: Glucose - Point of Care 170 mg/dl (70-99)
[2024-03-20] MEDS: NOVOLOG FLEXPEN-LOW RESISTANCE 1 UNITS SC ×2 (13:34→17:08)
[2024-03-20] MEDS: NITROGLYCERIN PREMIX 250 IV (14:07)
--- NOTE | 2024-03-20 14:17 | OR.RPT ---
Operative Report
Operative Report
PROCEDURE DATE: 03/20/2024
Preoperative diagnosis: Asymptomatic severe/critical left carotid artery stenosis.
Postoperative diagnosis: Same
Procedure: Left carotid endarterectomy with bovine pericardial patch angioplasty and intraoperative EEG/SSEP monitoring.
Surgeon: Yasir
Adjuster Arbitrator: Vidhya Mireles INNERSOLE FITTER, required for all aspects of procedure including assistance with traction/countertraction, following of suture line, assistance with closure.
Complications: None
Anesthesia: General
Indications for procedure:
Patient had had acute/subacute infarction involving the right central rangel a couple months prior. Workup had revealed a left carotid severe stenosis that was felt to be asymptomatic. Risk/benefits/alternatives of revascularization were all fully
discussed. Patient understood all wished to proceed.
Description of procedure:
Patient was identified brought to the operating room placed on the table in supine position. After the adequate administration of anesthesia and perioperative antibiotics he was prepped and draped in the standard surgical fashion. A standard
preoperative timeout was undertaken and everybody was in agreement the plan. A standard longitudinal incision was made in the left neck that was carried through the skin subcutaneous tissue. Using the electrocautery dissection was carried through
the platysma muscle layer and then alongside the anterior medial border of the sternocleidomastoid muscle. Then using a combination of sharp dissection with the Metzenbaum scissors and electrocautery I dissected along the anterior medial border of
the internal jugular vein. The common facial vein branch was ligated between silk ties and then divided. I then deepened my retraction. The common carotid artery was identified and carefully dissected away from the surrounding structures take
great care to avoid any injury to the structures. A vessel loop was passed around it which was double looped, but not yet tightened. Note the vagus nerve was protected from harm's way. I then continued my dissection up the common carotid artery
to the bulb staying only on the anterior surface of the carotid artery. Then I carried the dissection up to the internal carotid artery and then to the distal internal carotid artery. Note, based on CT scan I knew that the area of severe stenosis
was isolated to the internal carotid artery a couple centimeters distal to the origin/bifurcation of the carotid. Therefore I dissected intentionally slightly further cephalad to find the soft spot. To palpation of the slightly more difficult as
there was not heavily calcified plaque but there was an area where there felt that there was a thickening and a transition beyond here to more normal consistency/caliber. I identified where it was soft and carefully circumferentially dissected the
internal carotid artery with minimal mobilization and passed a vessel loop around it. Note the hypoglossal nerve was preserved from harm's way. The patient was given an appropriate dose of heparin 10,000 units. Next I dissected the anterior
surface of the external carotid artery and superior thyroid branches. These were then carefully circumferentially dissected with minimal mobilization and vessel loops passed around these which were double looped but not yet tightened. After 3
minutes of heparin circulation time and confirmation of optimization of the blood pressure with my anesthesiology colleagues, I clamped the distal internal carotid artery where it was soft. There was no immediate EEG or SSEP changes. After 1
minute of test clamp time there was no changes noted. Therefore at this point, the vessel loops on the external carotid artery and superior thyroid branches were tightened and the common carotid artery was clamped where it was soft proximally. An
arteriotomy was made on the proximal internal carotid artery with an 11 blade and extended using a Teran scissor. I extended the arteriotomy onto the mid to distal internal carotid artery. I intentionally made the arteriotomy on the proximal
internal carotid artery, rather than on the common carotid artery as it is more standard given the fact that there was no significant plaque on imaging or to palpation in the carotid bulb/bifurcation. I identified in the mid section of the
arteriotomy had made the area of stenosis, confirming what I had palpated earlier. This was essentially noncalcified focal thickened intima/plaque that resulted in a significant luminal narrowing focally. A [place] was then used to endarterectomized
the plaque. An endarterectomy plane was created, and the plaque was then endarterectomized. Distally where the intima became more normal I transected the plaque here. Next I endarterectomized the intima back to normal intima in the proximal
internal carotid artery, and the intima was cut flush there. The plaque was then sent off for specimen. Proximal and distal endpoints were then carefully inspected. Any fine debris was removed with fine forceps, and the intima was noted to be
nicely adherent proximally distally. Next any fine debris were removed throughout the endarterectomy bed with fine forceps. Interrupted 7-0 Prolene tacking sutures were placed to tack the distal endpoint. I then flushed heparinized saline. I was
very satisfied. Then, I used a bovine pericardial patch to sew a patch angioplasty with a running 6-0 Prolene suture. Prior to completing and tying down my suture line, I backbled sequentially each branch and reclamped each branch prior to
unclamping the next branch. I then irrigated with heparinized saline. Then I completed and tied down my suture line. We then restored flow in the common carotid and external carotid arteries. Finally, we released flow in the internal carotid
artery. There was excellent pulsatile flow in all 3 vessels. There was an excellent Doppler signal in the internal carotid artery distal to the patch with a good normal low resistance Doppler signal. There was a good Doppler signal in the
external carotid artery as well. 6-0 Prolene [id number] sutures were placed along any bleeding points along the suture line. Protamine was given to reverse the heparin. Hemostasis was completely achieved. We then irrigated and confirmed full
hemostasis. We then closed in layers with 2-0 Vicryl layer to reapproximate the sternocleidomastoid muscle, followed by 3-0 Vicryl platysma muscle running layer, followed by 4-0 Monocryl subcuticular stitch. Dermabond was applied. The patient
tolerated procedure well. He awoke moving all extremities to command with tongue in the midline.
--- NOTE | 2024-03-20 14:20 | PTCARENOTE ---
Despite dozing off and on pts BP vasilating between 159-161 to 168-170 syst. More often than not BP syst >165. Per orders Nitroglycerin gtt initiated at 5mcg then increased to 10 mcg currently-infusing via L forearm IV Site. Goal Bp Syst 100-165. Pt
informed to let me know if he starts to have a headache. Neuro assessment is unchanged. Does admit to having to urinate. States last time he needed to be straight cathed which he hated. Currently trying to void. L neck incision is intact. No
drainage.
--- NOTE | 2024-03-20 15:41 | CON.INTV ---
Consultation
Consultation Request
Date/Time Consultation Requested: 03/20/2024
Date/Time Consultation Performed: 03/20/2024
Requesting Provider: Dr. Cooley
Performing Provider: Dr. Uriel Lagunas
Reason for Consultation: Status post left carotic endarterectomy
Medical History
-
History of Present Illness:
62-year-old woman with history of recent CVA on 01/2024. Carotic duplex on 02/04/2024 showed left carotic artery stenosis.
Past Medical History
Past Medical History: Other (See assessment and plan)
Social History
Tobacco: Non-smoker
Alcohol: Occasional
Drug: None
Personal:
Living: With Family
Family History
Family History: Reviewed & Not Pertinent
Allergies / Home Medications
Allergies
Allergy/AdvReac Type Severity Reaction Status Date / Time
No Known Allergies Allergy Verified 03/20/24 07:02
Home Medications
�Medication �Instructions �Recorded �Confirmed �Last Taken �Type
atorvastatin 80 mg tablet 80 mg PO QPM #30 tabs 02/05/24 03/20/24 03/19/24 07:00 Rx
clopidogrel 75 mg tablet 75 mg PO DAILY #90 tabs 02/05/24 03/20/24 03/19/24 07:00 Rx
lisinopril 5 mg tablet 5 mg PO DAILY #30 tabs 02/05/24 03/20/24 03/19/24 07:00 Rx
metformin 500 mg tablet 500 mg PO BID Diabetes 03/05/24 03/20/24 03/20/24 05:00 History
vitamin E (dl, acetate) 180 mg 180 mg PO DAILY Supplement 03/11/24 03/11/24 Unknown History
(400 unit) capsule
Review of Systems
-
History Source: Patient
All other systems: Negative unless noted
Vitals / Labs / Diagnostic Testing
Vital Signs
Temp Pulse Resp BP Pulse Ox
98.5 F 96 19 158/95 99
03/20/24 11:35 03/20/24 13:15 03/20/24 13:15 03/20/24 13:00 03/20/24 13:15
Lab Data
03/20/24 10:23
03/20/24 10:23
Laboratory Results
03/20/24
10:23
PT 13.4
INR 1.02
APTT 26.7
Diagnostic Testing:
Physical Exam
-
HEENT: Normocephalic and Other (Cervical incision is intact. No stridor on exam)
Cardiovascular: S1/S2
Respiratory: Clear and Non-Labored Respirations
GI: Soft
Neurology: Awake, Oriented, AO x 3 and No Motor Deficits
Skin: Warm
General: Comfortable
Assessment
-
Status post Left carotid endarterectomy with bovine pericardial patch angioplasty and EEG monitoring-Dr. Cooley 03/20/2024
Hypertension
Conditions present prior admission:
History of CVA-status post tPA-no residual deficit
#Left-sided hemiparesis + slurred speech suspicious for CVA
#Suspected small lacunar infarct in the right parietal white matter seen on CT head from 02/03/2024
Obesity
Type 2 diabetes
Hyperlipidemia
Family history of type 2 diabetes
Assessment and plan:
Postoperative surgical intensive care unit monitoring
Supplemental oxygen as needed
Incentive spirometry-encourage
Aspiration precautions
Nebulizers if needed-currently not bronchospastic
Chest x-ray 03/20/2024,reviewed-low lung volumes. Left lower lobe subsegmental atelectasis
Surgical incision intact without hematoma
No stridor on exam
Analgesia with narcotics as needed, monitor respiratory status close
Neuro and vascular checks per protocol
Vascular surgery following-correspondence and operative notes reviewed
Monitor blood pressure
Allow for mild permissive hypertension
Started on nitroglycerin drip for blood pressure control. Will titrate to parameters
Restart lisinopril 5 mg which he takes in the outpatient setting
Follow blood sugars
Insulin supplementation as needed
Metformin restarted
Patient does report some snoring: Discussed with him possibility of obstructive sleep apnea. He is agreeable
Information will be left in the chart for outpatient follow-up
DVT prophylaxis-heparin subcu
Early nutrition
Early mobilization-per protocol
Critical care statement: A total of 31 minutes of critical care time was provided for this patient today. This includes management of unstable vital signs, evaluation of the patient at bedside, reviewing the patient's pertinent medical records
including radiographs, microbiology, laboratory evaluations and discussion with primary team, critical care nursing, and respiratory therapy.
--- NOTE | 2024-03-20 16:15 | PTCARENOTE ---
Overall BP better on the 25 mcg of NTG. Pt remains resting- did try for a while to void without success. Stated he felt like he really had to void. Bladder scanned for 1060 mls and straight cathed for 1050 mls of yellow urine. Stated felt better
after. HR had been going up to the 112-118 range came down to around 100-103. Respirs are unlabored - changed over to RA at 1430 and sats 95-97%. Monitor SR-ST. Neuro assessment is unchanged. L neck incision with sl bruising but no swelling or
hematoma. Turned and repositioned. Call walker remains in reach.
[2024-03-20] MEDS: HEPARIN 5000 UNITS SC ×2 (16:59→23:09)
[2024-03-20 17:16] LABS: Glucose - Point of Care 181 mg/dl (70-99)
--- NOTE | 2024-03-20 17:30 | PTCARENOTE ---
Eating dinner. Ice pack to L neck incision - 20 min q2hrs. Denies pain or headache. IV NTG adjusted as needed for BP's- to keep syst <165
[2024-03-20] MEDS: LIPITOR 80 MG PO (18:27)
--- NOTE | 2024-03-20 18:41 | PTCARENOTE ---
Fair appetite for dinner. VS as documented. No complaints of pain. L neck site is intact. No swelling or drainage. Call walker in reach
[2024-03-20] MEDS: GLUCOPHAGE 500 MG PO (20:19)
--- NOTE | 2024-03-20 20:30 | PTCARENOTE ---
rec'd patient. assessment as documented. neuro checks ongoing s/p CEA. L neck site approximated, skin glue intact, soft, mild ecchymosis. pt denies pain at this time. oriented x3. nitro gtt infusing to maintain SBP 100-165. SR on monitor. arterial
line leveled and zeroed. on RA, denies SOB. urinal at bedside. call walker within reach, care ongoing.
[2024-03-20 21:58] LABS: Glucose - Point of Care 145 mg/dl (70-99)
--- NOTE | 2024-03-20 23:30 | PTCARENOTE ---
pt unable to void, bladder scan for >1000ml, straight cath for 1050 ml. nitro gtt continues. call walker within reach
[2024-03-21] VITALS (16 sets, daily range): BP systolic 125–157; BP diastolic 73–94; BMI 31.5
[2024-03-21 04:11] LABS: Hematocrit 35.3 % (39.0-52.0); Hemoglobin 12.4 g/dL (13.0-18.0); Mean Corp Hgb Conc. 35.1 g/dL (33.0-37.0); Mean Corpuscular Hgb 30.5 pg (27.0-31.0); Mean Corpuscular Volume 86.9 fL (80.0-94.0); Mean Platelet Volume 11.9 fL (7.4-10.4); Platelet Count 143 10^3/uL (130-400); Red Blood Cell Count 4.06 10^6/uL (4.70-6.10); Red Cell Dist. Width 12.7 % (11.5-14.5); White Blood Cell Count 12.1 10^3/uL (4.8-10.8)
[2024-03-21 04:40] LABS: Blood Urea Nitrogen 13 mg/dl (9-20); Calcium 8.8 mg/dl (8.4-10.2); Carbon Dioxide 21 mmol/L (22-30); Chloride 106 mmol/L (98-107); Estimated Creatinine Clearance 112 ml/min; Glucose 154 mg/dl (70-99); Sodium 139 mmol/L (135-145); eGFR > 60.00
[2024-03-21 05:05] LABS: INR 1.01; PT 13.3 Sec (11.4-14.6)
[2024-03-21 05:06] LABS: APTT 29.8 Sec (23.4-35.0)
[2024-03-21] MEDS: ZESTRIL 5 MG PO (07:31)
[2024-03-21] MEDS: PLAVIX 75 MG PO (07:34)
--- NOTE | 2024-03-21 08:01 | W.PN.VS ---
Addendum entered and electronically signed by Mushtaq Cooley MD 03/21/24 09:49:
Seen and examined earlier this a.m. with RILEY Bray. Agree with findings as noted below. Patient without significant complaints. Left neck incision is clean dry and intact, no hematoma. Neurologically no focal deficits, moves all extremities
well. Tongue midline. Plan/as discussed and noted below.
Original Note:
Today's Communication / Plan
-
Seen and assessed with Dr. Cooley
Assessment/Plan
-
POD 1 Left carotid endarterectomy with bovine pericardial patch angioplasty and intraoperative EEG/SSEP monitoring
Plan:
�DC A-line, wean off nitro
�DC IV fluids
�P.o. BP medications
-Diet
-Out of bed/ambulate
-Likely discharge later today
Subjective Data
-
Date of Service: March 21, 2024
Patient seen and assessed with Dr. Cooley. No events overnight. Patient on nitro drip. No complaints at this time
Objective Data
-
Vital Signs
Temp Pulse Resp BP Pulse Ox
98.5 F 85 22 156/81 95
03/21/24 07:00 03/21/24 07:31 03/21/24 05:45 03/21/24 07:31 03/21/24 05:45
Intake and Output
03/20/24 03/21/24 03/22/24
06:59 06:59 06:59
Intake Total 2469.2 / 2469.2
Output Total 2550 / 2550
Balance -80.8 / -80.8
Intake:
Oral fluids 790 / 790
IV fluids (Total) 1679.2 / 1679.2
NTG 59.2 / 59.2
Normosol 100 / 100
Nss 1,000 ml @ 80 mls/hr IV . 1520 / 1520
[id number] KELLEY Rx#:[id number]
Output:
Straight cath output 2550 / 2550
Lab Results
03/21/24 04:00
03/21/24 04:00
Calcium 8.8 mg/dl (8.4-10.2) 03/21/24 04:00
Physical Exam
-
AAOx3
No tachypnea on room air
No tachycardia
Neck site clean, dry, intact, no swelling or hematoma noted
Moves all extremities equally
Follows commands
Tongue midline
[2024-03-21 08:05] LABS: Glucose - Point of Care 158 mg/dl (70-99)
[2024-03-21] MEDS: HEPARIN 5000 UNITS SC (08:22)
[2024-03-21] MEDS: NOVOLOG FLEXPEN-LOW RESISTANCE 1 UNITS SC (08:22)
[2024-03-21] MEDS: GLUCOPHAGE 500 MG PO (08:22)
--- NOTE | 2024-03-21 08:45 | PTCARENOTE ---
Rec'd pt at 0730 awake alert and oriented resting in bed. Overall states he feels ok but is hoping to go home today. Dr. Cooley and associates in this am. Neuro-denies dizziness or headache, Speech is clear. Smile is even. SUAREZ. No c/o numbness or
tingling. Skin-L neck incision is approximated. Sl ecchymosis at site. No swelling or drainage. Surgical adhesive present. Respirs are unlabored on RA with sats of 96%. BS sl decreased at the bases iwth few base crackles. Monitor SR. + pulses. No
edema. R radial a line intact- zeroed and recalibrated. Waveform as documented. Good CMS checks to distal extrem. Overall running about 20 mm/hg higher than the cuff bp. Dr. Cooley in and will dc A line and trend cuff BP's. Abd is soft with + BS.
Denies nausea. Denies need to void-did express how uncomfortable it is to be st cathed. IV fluids capped at 0815- R AC site wnl. IV Nitro continues to infuse via L forearm IV site at 25 mcg- will try to wean as BP permits. Plan of care reviewed with
pt. Call walker in reach. Ready to eat breakfast.
--- NOTE | 2024-03-21 09:03 | CM ---
CM following re: discharge planning.
Reviewed pt's chart, met with pt.
Pt is a 63 year old male, admitted with primary dx of POD 1 s/p Left carotid endarterectomy. Per vascular Surgery, pt will be discharged home later this afternoon. pt is aware and he stated his girlfriend will transport home.
Pt reports he lives with a girlfriend in a 2[address], 2 steps to enter, has no children, has supportive brother. 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
PCP: Colin Kimble
Pharmacy [facility].
D/C plan: home no needs. Girlfriend to transport.
--- NOTE | 2024-03-21 09:30 | PTCARENOTE ---
A line Dc'd per md order. Pressure held over the site. No hematoma. Fair appetite at best for breakfast. No c/o nausea. Denies need to void currently. Complete CHG bath given. Pt then assisted oob to the chair. No c/o dizziness. Gait is steady. Pt
did own oral care sitting oob. IV NTG gtt decreased to 20 mcg at 0900. VS as documented. Will try to continue to wean keeping Bp 100-165 syst. Call walker in reach.
--- NOTE | 2024-03-21 11:00 | PTCARENOTE ---
Remains sitting oob in the chair. No complaints Weaning IV NTG as BP permits.
[2024-03-21 12:07] LABS: Glucose - Point of Care 238 mg/dl (70-99)
--- NOTE | 2024-03-21 12:15 | PTCARENOTE ---
NTG weaned to off. VS as documented. Pt was able to void and voided 350 mls of urine. Currently now that NTG off pt ambulated 1 loop around the ICU. Gait is steady and no c/o dizziness. Neuro assessment is unchanged. L neck incision is unchanged.
S/O at bedside. Call walker in reach.
--- NOTE | 2024-03-21 12:19 | W.PN.INTV ---
Today's Communication / Plan
Recommendations
Wean off nitroglycerin drip
Outpatient antihypertensive
Discontinue arterial line
Increase activity as tolerated
Continue antiplatelets
Discharge plan later today possible
Assessment
-
Status post Left carotid endarterectomy with bovine pericardial patch angioplasty and EEG monitoring-Dr. Cooley 03/20/2024
Hypertension
Conditions present prior admission:
History of CVA-status post tPA-no residual deficit
#Left-sided hemiparesis + slurred speech suspicious for CVA
#Suspected small lacunar infarct in the right parietal white matter seen on CT head from 02/03/2024
Obesity
Type 2 diabetes
Hyperlipidemia
Family history of type 2 diabetes
Assessment and plan:
Postoperative day 1,
Hypertensive, on nitroglycerin drip. Will be weaned off.
Restart outpatient medications
Neurologically intact
Incision without hematoma
No stridor on exam.
Clear lung exam
Chest x-ray 03/20/2024-low lung volumes. Left lower lobe subsegmental atelectasis
Analgesia with narcotics as needed, monitor respiratory status close
Neuro and vascular checks per protocol
Vascular surgery following-correspondence and operative notes reviewed
Possible DC later today
Monitor blood pressure
Restart outpatient blood pressure medication
Discontinue arterial line
Discontinue nitroglycerin drip
Follow blood sugars
Insulin supplementation as needed
Continue
Patient does report some snoring: Discussed with him possibility of obstructive sleep apnea. He is agreeable
Information will be left in the chart for outpatient follow-up
DVT prophylaxis-heparin subcu
Tolerating diet
Continue ICU monitoring until nitroglycerin weaned off. If not discharged transition to telemetry.
Subjective Dataa
Subjective Data
Date of Service:
Date of Service: March 21, 2024
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
Subjective:
Patient offers no significant complaints
Denies blurry vision or headache
Denies dizziness
Voice is clear
Tolerating diet
Remain on IV nitroglycerin overnight. Denies any headache
Review of Systems
General: Fever (n)
Cardiopulmonary: Dyspnea (none at rest)
GI: Abdominal Pain (n), Nausea (n) and Vomiting
Neuro: Headache (n), Dizziness (n) and Weakness (n)
Objective Data
Data Reviewed
Vital Signs / I&O / Oxygen:
Vital Signs
Temp Pulse Resp BP Pulse Ox
98.7 F 81 21 136/82 98
03/21/24 11:00 03/21/24 11:00 03/21/24 11:00 03/21/24 11:00 03/21/24 11:00
Intake and Output
03/20/24 03/21/24 03/22/24
06:59 06:59 06:59
Intake Total 2469.2 / 2553.0 290.6 / 290.6
Output Total 2550 / 2550
Balance -80.8 / 3.0 290.6 / 290.6
SaO2 98
Nasal Cannula flow liters per 2
minute
Physical Exam
General: Comfortable
HEENT: Normocephalic and Other (Left cervical incision is intact without hematoma)
Cardiovascular: S1-S2
Respiratory: Clear and Non-Labored Respirations
GI: Soft and Non Distended
Neurology: Awake, Alert, AO x 3 and No Motor Deficits
Skin: Good Color
Labs/Micro/Reports
Lab Data
03/21/24 04:00
03/21/24 04:00
Laboratory Results
03/21/24 03/21/24
04:00 04:28
PT Cancelled 13.3
INR Cancelled 1.01
APTT Cancelled 29.8
[2024-03-21] MEDS: NOVOLOG FLEXPEN-LOW RESISTANCE 2 UNITS SC (13:36)
--- NOTE | 2024-03-21 13:45 | W.DS.TRANS ---
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
-
Discharge Instructions:
Discharge Diagnosis/Procedures Left carotid endarterectomy
Diet As tolerated
Activity No strenuous activity
Driving Restrictions Not until seen by your Dr
Bathing Restrictions OK to Shower
Instructions:
Stand-Alone Forms: DC Instr - Vascular OR
Changes to Home Medications: No
Discharge Medications:
DC Medications w/original date entered in [facility]
atorvastatin 80 mg tablet 80 mg PO QPM #30 tabs 02/05/24
clopidogrel 75 mg tablet 75 mg PO DAILY #90 tabs 02/05/24
lisinopril 5 mg tablet 5 mg PO DAILY #30 tabs 02/05/24
metformin 500 mg tablet 500 mg PO BID Diabetes 03/05/24
vitamin E (dl, acetate) 180 mg (400 unit) capsule 180 mg PO DAILY Supplement 03/11/24
Home Medication Changes
Pending Results: No
--- NOTE | 2024-03-21 14:40 | PTCARENOTE ---
Good appetite for lunch. Pt voided again. Vasc surgery updated. Pt ok for discharge. Capped ints removed from RAC and L forearm. Sites wnl. DC instructions reviewed with pt and S/O including s/s to call or seek medical help. Verbalized
understanding. Assessment unchanged. Pt DC via wheelchair with s/o to home. Belongings from room returned to pt
== END 2024-03-21 15:02 | disposition home or self-care (01) | DRG 38 ==
LOC: ICU 06:07
PROVIDERS: Nurse Practitioner Acute Care; ADMITTING PHYSICIAN Surgery Vascular Surgery; CONSULT PHYSICIAN Internal Medicine Critical Care Medicine; FAMILY PHYSICIAN Student in an Organized Health Care Education/Training Program
PROC: 03CL0ZZ Extirpation of Matter from Left Internal Carotid Artery, Open Approach (ICD-10-PCS; 2024-03-20)
PROC: 03UL0KZ Supplement Left Internal Carotid Artery with Nonautologous Tissue Substitute, Open Approach (ICD-10-PCS; 2024-03-20)
DX: I65.22 Occlusion and stenosis of left carotid artery (principal); J98.11 Atelectasis; I77.1 Stricture of artery; I10 Essential (primary) hypertension; E66.9 Obesity, unspecified; E11.9 Type 2 diabetes mellitus without complications; E78.5 Hyperlipidemia, unspecified; Z86.73 Personal history of transient ischemic attack (TIA), and cerebral infarction without residual deficits; Z79.84 Long term (current) use of oral hypoglycemic drugs; Z79.02 Long term (current) use of antithrombotics/antiplatelets; Z83.3 Family history of diabetes mellitus
CPT/HCPCS: 88304; 88311; 35301; 36415; 71045; 80048; 82962; 85025; 85027; 85610; 85730; 86850; 86900; 86901; 93005; 95938; 95941; 95955

== ENCOUNTER 2024-04-08 06:22 | Outpatient (RCR) | payer OTHER, SELFPAY | END 2024-04-08 23:59 | disposition home or self-care (01) | LOC: ROT 06:22 | PROVIDERS: ATTENDING PHYSICIAN Student in an Organized Health Care Education/Training Program | DX: I69.310 Attention and concentration deficit following cerebral infarction (principal); Z73.6 Limitation of activities due to disability | CPT/HCPCS: 97110; 97129; 97130; 97530; 97535 ==

== ENCOUNTER → 2024-05-05 09:20 | Outpatient (REF) | payer OTHER, SELFPAY | LOC: RAD 09:20 | PROVIDERS: ATTENDING PHYSICIAN Physician Assistant | DX: I65.22 Occlusion and stenosis of left carotid artery (principal) | CPT/HCPCS: 93880 ==

== ENCOUNTER 2024-05-06 09:16 | Outpatient (RCR) | payer OTHER, SELFPAY | END 2024-05-06 23:59 | disposition home or self-care (01) | LOC: ROT 09:16 | PROVIDERS: ATTENDING PHYSICIAN Student in an Organized Health Care Education/Training Program | DX: I69.319 Unspecified symptoms and signs involving cognitive functions following cerebral infarction (principal); E11.69 Type 2 diabetes mellitus with other specified complication; Z73.6 Limitation of activities due to disability | CPT/HCPCS: 97129; 97130; 97530; 97535 ==

== ENCOUNTER → 2024-11-11 10:56 | Outpatient (REF) | payer OTHER, SELFPAY | LOC: RAD 10:56 | PROVIDERS: ATTENDING PHYSICIAN Surgery Vascular Surgery; FAMILY PHYSICIAN Student in an Organized Health Care Education/Training Program | DX: I65.22 Occlusion and stenosis of left carotid artery (principal) | CPT/HCPCS: 93880 ==

== ENCOUNTER → 2025-05-27 08:08 | Outpatient (REF) | payer OTHER, SELFPAY | LOC: DHVS 08:08 | PROVIDERS: ATTENDING PHYSICIAN Surgery Vascular Surgery; FAMILY PHYSICIAN Student in an Organized Health Care Education/Training Program | DX: I65.22 Occlusion and stenosis of left carotid artery (principal) | CPT/HCPCS: 93880 ==